=== PATIENT | male | born 1950 ===

== ENCOUNTER 2016-10-10 18:22 | Inpatient (IN) | payer MEDICAID, MEDICARE ==
[2016-10-10 18:26] VITALS: BMI 25.0
[2016-10-10] MEDS ORDERED: Morphine 2 mg/ml ISec IVP STA (19:18)
[2016-10-10] MEDS ORDERED: Sodium Chloride 0.9% 1,000 ML IV STA (19:18)
--- NOTE | 2016-10-10 19:20 | ED PDOC ---
Arrival/HPI - General Historian: Patient <Mark Natarajan - Last Filed: 10/10/16 22:43> <Gilberto Godoy - Last Filed: 10/10/16 23:03> - General Chief Complaint: Abdominal Pain Time Seen by Provider: 10/10/16 18:49 - History of Present Illness Narrative History of Present Illness (Text): 10/10/16 19:16 Mr. Mazariegos is a 66 year old male with past medical history of colon polyps, glaucoma, bladder cancer and past hx of gallstones who presents with a five hour history of abdominal pain. Pt states that today he was consuming a bowl of soup and 30 minutes after began experiencing diffuse abdominal pain. The patient indicates it feels dull and primarily located in the mid to right upper quadrant. Pt reports breathing or sudden movement causes him more discomfort. The patient reports 2 days prior to the onset of his presenting symptoms he experienced sudden onset diarrhea for which has resolved today. Pt denies nausea , vomiting, fever, chest pain, and shortness of breath. (Mark Natarajan) Past Medical History - Provider Review Nursing Documentation Reviewed: Yes - Past History Past History: No Previous - Infectious Disease Hx of Infectious Diseases: None - Tetanus Immunization Tetanus Immunization: Unknown - Past Medical History Past Medical History: No Previous - Cardiac Hx Cardiac Disorders: No - Pulmonary Hx Respiratory Disorders: No - Neurological Hx Neurological Disorder: No - HEENT Hx Glaucoma: Yes (BILAT.) - Renal Hx Renal Disorder: No - Endocrine/Metabolic Hx Endocrine Disorders: No - Hematological/Oncological Hx Cancer: Yes (BLADDER) - Integumentary Hx Dermatological Disorder: No - Musculoskeletal/Rheumatological Hx Musculoskeletal Disorders: Yes Hx Falls: No Hx Fractures: Yes (HX FRACTURE RIB AUGUST 2013) Hx Gout: Yes Other/Comment: HX FRACTURE RIB AUGUST 2013 - Gastrointestinal Hx Gastrointestinal Disorders: Yes (biliary stones, hemorrhoids) Hx Gall Bladder Disease: Yes (STONES) Other/Comment: RECTAL ABSCESS - Genitourinary/Gynecological Hx Genitourinary Disorders: Yes Hx Bladder Cancer: Yes Hx Hematuria: Yes - Psychiatric Hx Substance Use: No - Past Surgical History Past Surgical History: Non-Contributing - Surgical History Other/Comment: Cysto. RECTAL ABSCESS X 2 - Anesthesia Hx Anesthesia: Yes Hx Anesthesia Reactions: No Hx Malignant Hyperthermia: No - Suicidal Assessment Feels Threatened In Home Enviroment: No <Mark Natarajan - Last Filed: 10/10/16 22:43> Family/Social History - Physician Review Nursing Documentation Reviewed: Yes Family/Social History: No Known Family HX Smoking Status: Never Smoked Hx Alcohol Use: No Hx Substance Use: No Hx Substance Use Treatment: No <Mark Natarajan - Last Filed: 10/10/16 22:43> Allergies/Home Meds <BasimdeyaMark - Last Filed: 10/10/16 22:43> <Gilberto Godoy - Last Filed: 10/10/16 23:03> Allergies/Adverse Reactions: Allergies No Known Allergies Allergy (Verified 06/06/12 09:45) Home Medications: Home Meds Medication Instructions Recorded Confirmed Allopurinol 300 mg PO DAILY 04/22/15 10/10/16 Multivit-Mins/Iron/Folic/Lycop 1 tab PO DAILY 04/22/15 10/10/16 [Centrum Men's Tablet] Vpvzl-4-Typd Ethyl Esters [OMEGA 3] 1 tab PO DAILY 04/22/15 10/10/16 Latanoprost 0.005% Opht [Xalatan 1 drop BOTHEYES DAILY 10/10/16 10/10/16 Opht] Review of Systems - Physician Review All systems were reviewed & negative as marked: Yes - Review of Systems Constitutional: absent: Fevers Respiratory: absent: SOB Cardiovascular: absent: Chest Pain, Edema Gastrointestinal: Abdominal Pain, Nausea. absent: Vomiting Genitourinary Male: absent: Dysuria <Mark Natarajan - Last Filed: 10/10/16 22:43> Physical Exam Vital Signs Reviewed: Yes Temperature: Afebrile Blood Pressure: Normal Pulse: Regular Respiratory Rate: Normal Appearance: Positive for: Well-Appearing Pain Distress: None Mental Status: Positive for: Alert and Oriented X 3 - Systems Exam Head: Present: Atraumatic, Normocephalic Pupils: Present: PERRL Extroacular Muscles: Present: EOMI Conjunctiva: Present: Normal Mouth: Present: Moist Mucous Membranes Neck: Present: Normal Range of Motion Respiratory/Chest: Present: Clear to Auscultation, Good Air Exchange. No: Respiratory Distress, Accessory Muscle Use Cardiovascular: Present: Regular Rate and Rhythm, Normal S1, S2. No: Murmurs Abdomen: Present: Tenderness, Normal Bowel Sounds, Other (positive gong's sign ). No: Distention, Peritoneal Signs Upper Extremity: Present: Normal Inspection. No: Cyanosis, Edema Lower Extremity: Present: Normal Inspection. No: Edema <Mark Natarajan - Last Filed: 10/10/16 22:43> Medical Decision Making - Lab Interpretations I have reviewed the lab results: Yes - RAD Interpretation High Frequency Mill Operator: Radiologist - EKG Interpretation Interpreted by ED Physician: Yes Type: 12 lead EKG <Mark Natarajan - Last Filed: 10/10/16 22:43> <Gilberto Godoy - Last Filed: 10/10/16 23:03> ED Course and Treatment: 10/10/16 19:40 Impression: Pt is a 66 year old male with past medical history of polyps of his colon, bladder cancer and rectal abscess who complains of diffuse abdominal pain for the past 5 hours. Differential Diagnosis included but are not limited to: - cholecystitis - gastroenteritis Plan: - Labs: CBC, CMP, Lipase, cardiac iso - Meds: morphine, zofran, IVF, - Imaging: Right upper quadrant sound - Reassess and disposition Progress Notes: 10/10/16 19:40 10/10/16 21:41 U/S report results: Liver: Hepatic texture is mildly heterogeneous. There is hepatopedal flow in the main portal vein. There is a 2.4 x 3.1 cm low attenuation nodular lesion in the anterior liver. GB: Gallbladder is partially distended. There are shadowing stones with obscure posterior gallbladder. Gallbladder wall measures 2 mm in width. Common bile duct: Common bile duct measures 4 mm in diameter Pancreas: Pancreas is partially obscured by bowel gas. Kidneys: Kidneys are unremarkable Spleen: Spleen is unremarkable Aorta: Visualized portions of the aorta and inferior vena cava are unremarkable Impression: Fatty liver, possible nodular lesion in the anterior liver; limited visualization and evaluation of the pancreas; gallstones, Patient was not tender over the gallbladder 10/10/16 22:43 Spoke with admitting team and they are willing to accept patient for observation and GI consult tomorrow morning (Mark Natarajan) A 66 year old male with abdominal pain. In agreement with resident note, which includes further HPI details. Patient was seen and evaluated with resident, came up with plan and treatment together. RUQ tenderness. (Gilberto Godoy) - Lab Interpretations Lab Results: 10/10/16 20:00 10/10/16 20:00 Lab Results 10/10/16 21:00: Urine Color Yellow, Urine Appearance Clear, Urine pH 6.0, Ur Specific [place] 1.020, Urine Protein Negative, Urine Glucose (UA) Negative, Urine Ketones Negative, Urine Blood Negative, Urine Nitrate Negative, Urine Bilirubin Moderate H, Urine Urobilinogen 1.0 H, Ur Leukocyte Esterase Negative 10/10/16 20:00: Sodium 140, Potassium 4.4, Chloride 103, Carbon Dioxide 26, Anion Gap 15, BUN 8, Creatinine 1.0, Est GFR ( Amer) > 60, Est GFR (Non- Af Amer) > 60, Random Glucose 94, Calcium 8.8, Total Bilirubin 3.8 H, AST 147 H , ALT 99 H, Alkaline Phosphatase 115, Lactate Dehydrogenase 621, Total Creatine Kinase 95, Troponin I < 0.01, Total Protein 8.1, Albumin 4.1, Globulin 4.0, Albumin/Globulin Ratio 1.0 L, Lipase 130 10/10/16 20:00: WBC 9.4 D, RBC 5.66, Hgb 18.0 D, Hct 50.2, MCV 88.7, MCH 31.8 , MCHC 35.9, RDW 13.7, Plt Count 201, MPV 10.5, Gran % 73.4 H, Lymph % (Auto) 16.8 L, [place] % (Auto) 8.0 H, Eos % (Auto) 1.6, Baso % (Auto) 0.2, Gran # 6.87 H , Lymph # 1.6, [place] # 0.8 H, Eos # 0.2, Baso # 0.02 - RAD Interpretation Radiology Orders: 10/10/16 19:12 CHEST PORTABLE [RAD] Stat 10/10/16 19:18 ABDOMEN COMPLETE [US] Stat - EKG Interpretation EKG Interpretation (Text): 10/10/16 22:59 NSR, Rate [address] segment elevations or T wave inversions 10/10/16 22:59 (Mark Natarajan) - Medication Orders Current Medication Orders: Metronidazole (Flagyl) 500 mg in 100 mls @ 100 mls/hr IVPB Q8 NICO PRN Reason: Protocol Cefepime HCl (Maxipime 1gm) 1 gm in 100 mls @ 100 mls/hr IVPB Q12 NICO PRN Reason: Protocol Sodium Chloride (Sodium Chloride 0.9%) 1,000 mls @ 125 mls/hr IV .Q8H NICO Stop: 10/14/16 06:29 Last Admin: 10/10/16 23:01 Dose: 125 mls/hr Ondansetron HCl (Zofran Inj) 4 mg IVP Q4H PRN PRN Reason: Nausea/Vomiting Pantoprazole Sodium (Protonix Inj) 40 mg IVP DAILY NICO Discontinued Medications Sodium Chloride (Sodium Chloride 0.9%) 1,000 mls @ 999 mls/hr IV .Q1H1M STA Stop: 10/10/16 20:18 Last Admin: 10/10/16 20:02 Dose: 999 mls/hr Piperacillin Sod/Tazobactam Sod (Zosyn 4.5 Gm In Ns 100ml) 4.5 gm in 100 mls @ 200 mls/hr IVPB STAT STA PRN Reason: Protocol Stop: 10/10/16 22:36 Last Admin: 10/10/16 22:32 Dose: 200 mls/hr Morphine Sulfate (Morphine) 2 mg IVP STAT STA Stop: 10/10/16 19:19 Last Admin: 10/10/16 20:02 Dose: 2 mg Ondansetron HCl (Zofran Inj) 4 mg IVP STAT STA Stop: 10/10/16 19:19 Last Admin: 10/10/16 20:03 Dose: 4 mg - PA / SASH STICKER / Resident Statement / has reviewed & agrees with the documentation as recorded. / has examined the patient and agrees with the treatment plan. <Mark Natarajan - Last Filed: 10/10/16 22:43> - Scribe Statement The provider has reviewed the documentation as recorded by the Scribe <Gilberto Godoy - Last Filed: 10/10/16 23:03> - Scribe Statement Monica Jain Provider Scribe Attestation: All medical record entries made by the Scribe were at my direction and personally dictated by me. I have reviewed the chart and agree that the record accurately reflects my personal performance of the history, physical exam, medical decision making, and the department course for this patient. I have also personally directed, reviewed, and agree with the discharge instructions and disposition. (Gilberto Godoy) Disposition/Present on Arrival - Present on Arrival Any Indicators Present on Arrival: No History of DVT/PE: No History of Uncontrolled Diabetes: No Urinary Catheter: No History of Decub. Ulcer: No History Surgical Site Infection Following: None - Disposition Have Diagnosis and Disposition been Completed?: Yes Disposition Time: 22:15 Patient Plan: Observation <Mark Natarajan - Last Filed: 10/10/16 22:43> <Gilberto Godoy - Last Filed: 10/10/16 23:03> - Disposition Diagnosis: Abdominal pain Condition: STABLE
[2016-10-10 20:20] LABS: ALBUMIN 4.1 g/dL (3.0-4.8); ALT/SGPT 99 U/L (7-56); AST/SGOT 147 U/L (15-59); BLOOD UREA NITROGEN 8 mg/dL (7-21); CALCIUM 8.8 mg/dL (8.4-10.5); GFR AFRICAN-AMERICAN > 60; GFR NON-AFRICAN AMERICAN > 60; LIPASE 130 U/L (23-300)
[2016-10-10 20:34] LABS: TROPONIN I < 0.01 ng/mL
[2016-10-10 20:52] LABS: BASO # 0.02 K/mm3 (0.0-2.0); BASO % 0.2 % (0.0-3.0); EOS # 0.2 (0.0-0.7); EOS % 1.6 % (1.5-5.0); GRAN # 6.87 (1.4-6.5); GRAN % 73.4 % (50.0-68.0); LYMPH # 1.6 (1.2-3.4); LYMPH % 16.8 % (22.0-35.0); MEAN CELL VOLUME 88.7 fL (80.0-105.0); MEAN CORPUSCULAR HEMOGLOBIN 31.8 pg (25.0-35.0); MEAN CORPUSCULAR HGB CONC 35.9 g/dl (31.0-37.0); MEAN PLATELET VOLUME 10.5 fl (7.0-11.0); MONO # 0.8 (0.1-0.6); PLATELET COUNT 201 10^3/uL (120.0-450.0); RBC 5.66 10^6/uL (3.5-6.1); RED CELL DISTRIBUTION WIDTH 13.7 % (11.5-14.5); WHITE BLOOD COUNT 9.4 10^3/ul (4.5-11.0)
[2016-10-10 21:16] LABS: URINE APPEARANCE CLEAR (CLEAR); URINE BILIRUBIN MODERATE (NEGATIVE); URINE BLOOD NEGATIVE (NEGATIVE); URINE COLOR YELLOW (YELLOW); URINE GLUCOSE (UA) NEGATIVE (NEGATIVE); URINE LEUKOCYTE ESTERASE NEGATIVE Leu/uL (NEGATIVE); URINE NITRATE NEGATIVE (NEGATIVE); URINE PROTEIN NEGATIVE mg/dL (<30 mg/dL)
--- NOTE | 2016-10-10 21:23 | US ---
EXAM: US Abdomen Complete CLINICAL HISTORY: 66 years old, male; Pain; Abdominal pain; Additional info: Abdominal pain - positive gong sign TECHNIQUE: Real-time ultrasound of the abdomen (complete) with image documentation. EXAM DATE/TIME: 10/10/2016 7:18 PM COMPARISON: There are no prior studies for comparison. FINDINGS: Liver: Hepatic texture is mildly heterogeneous. There is hepatopedal flow in the main portal vein. There is a 2.4 x 3.1 cm low attenuation nodular lesion in the anterior liver. Gallbladder: Gallbladder is partially distended. There are shadowing stones which obscure posterior gallbladder. Gallbladder wall measures 2 mm in width. Common bile duct: Common bile duct measures 4 mm in diameter. Pancreas: Pancreas is partially obscured by bowel gas. Kidneys: Kidneys are unremarkable. Spleen: Spleen is unremarkable. Aorta: Visualized portions of the aorta and inferior vena cava are unremarkable. Inferior vena cava: See above. IMPRESSION: Fatty liver, possible nodular lesion in the anterior liver; limited visualization and evaluation of the pancreas; gallstones Patient was not tender over the gallbladder
[2016-10-10] MEDS ORDERED: Piperacill/Tazo 4.5gm in NS 4.5 GM/100 ML BAG IVPB STA (22:07)
--- NOTE | 2016-10-10 22:29 | CP.PCM.HP ---
History of Present Illness - History of Present Illness History of Present Illness: CC: Abdominal Pain Patient is a 66 year old male with a PMHx of colon polyps, glaucoma, rectal abscess, bladder cancer, gallstones, gout, and rib fracture who presents to the ED for evaluation of abdominal pain which began earlier this today after eating seafood. States that the pain is described as being a diffuse pressure. Denies associated vomitting or diarrhea. Admits to nausea which has resolved since onset. Sudden movement exacerbates the discomfort. Denies fever, chills, chest pain, SOB, constipation, and urinary symptoms. PMHx: colon polyps, glaucoma, rectal abscess, bladder cancer, gallstones, rib fracture PSHx: Cystoscopy with bladder tumor removal, rectal abscess X 2 Allergies: NKDA Social Hx: ETOH socially, denies tobacco use, denies illicit drug use Family Hx: father- prostate cancer Present on Admission - Present on Admission Any Indicators Present on Admission: No Review of Systems - Review of Systems Review of Systems: 12 point review of systems negative except as indicated in the HPI Past Patient History - Infectious Disease Hx of Infectious Diseases: None - Tetanus Immunizations Tetanus Immunization: Unknown - Past Medical History & Family History Past Medical History?: Yes - Past Social History Smoking Status: Never Smoked - CARDIAC Hx Cardiac Disorders: No - PULMONARY Hx Respiratory Disorders: No - NEUROLOGICAL Hx Neurological Disorder: No - HEENT Hx Glaucoma: Yes (BILAT.) - RENAL Hx Chronic Kidney Disease: No - ENDOCRINE/METABOLIC Hx Endocrine Disorders: No - HEMATOLOGICAL/ONCOLOGICAL Hx Cancer: Yes (BLADDER) - INTEGUMENTARY Hx Dermatological Problems: No - MUSCULOSKELETAL/RHEUMATOLOGICAL Hx Musculoskeletal Disorders: Yes Hx Falls: No Hx Fractures: Yes (HX FRACTURE RIB AUGUST 2013) Hx Gout: Yes Other/Comment: HX FRACTURE RIB AUGUST 2013 - GASTROINTESTINAL Hx Gastrointestinal Disorders: Yes (biliary stones, hemorrhoids) Hx Gall Bladder Disease: Yes (STONES) Other/Comment: RECTAL ABSCESS - GENITOURINARY/GYNECOLOGICAL Hx Genitourinary Disorders: Yes Hx Bladder Cancer: Yes Hx Hematuria: Yes - PSYCHIATRIC Hx Substance Use: No - SURGICAL HISTORY Other/Comment: Cysto. RECTAL ABSCESS X 2 - ANESTHESIA Hx Anesthesia: Yes Hx Anesthesia Reactions: No Hx Malignant Hyperthermia: No Meds Allergies/Adverse Reactions: Allergies Allergy/AdvReac Type Severity Reaction Status Date / Time No Known Allergies Allergy Verified 06/06/12 09:45 Physical Exam - Constitutional Appears: Well, Non-toxic - Head Exam Head Exam: ATRAUMATIC, NORMAL INSPECTION - Eye Exam Eye Exam: EOMI, Normal appearance, PERRL - ENT Exam ENT Exam: Mucous Membranes Moist - Neck Exam Neck exam: Positive for: Full Rom. Negative for: Tenderness, Thyromegaly - Respiratory Exam Respiratory Exam: Clear to Auscultation Bilateral, NORMAL BREATHING PATTERN. absent: Rales, Rhonchi, Wheezes - Cardiovascular Exam Cardiovascular Exam: REGULAR RHYTHM, +S1, +S2 - GI/Abdominal Exam GI & Abdominal Exam: Distended, Normal Bowel Sounds. absent: Guarding, Rebound , Rigid - Back Exam Back exam: absent: CVA tenderness (L), CVA tenderness (R) - Neurological Exam Neurological exam: Alert, CN II-XII Intact, Oriented x3 - Psychiatric Exam Psychiatric exam: Normal Affect, Normal Mood - Skin Skin Exam: Intact, Normal Color, Warm Results - Vital Signs Recent Vital Signs: Last Vital Signs Temp 97.7 F 10/10/16 18:31 Pulse 63 10/10/16 18:31 Resp 18 10/10/16 18:31 BP 129/79 10/10/16 18:31 Pulse Ox 98 10/10/16 18:31 - Labs Result Diagrams: 10/10/16 20:00 10/10/16 20:00 Assessment & Plan - Assessment and Plan (Free Text) Assessment: Pt is a 66 year old male with past medical history of polyps of his colon, bladder cancer and rectal abscess who is being admitted to the hospital for evaluation and treatment of diffuse abdominal pain. 1. Abdominal Pain - cholecystitis vs gastroenteritis - abdominal US reviewed, details- Fatty liver, possible nodular lesion in the anterior liver; limited visualization and evaluation of the pancreas; Gallbladder is partially distended. There are shadowing stones which obscure posterior gallbladder. Gallbladder wall measures 2 mm in width. - NPO - IVF NS @ 125 - CT chest, abdomen, pelvis with IV contrast - HIDA scan - GI consult - Surgery consult - metronidazole - cefepime - zofran 2. Transaminitis, Elevated T. Bili - monitor closely repeat CMP in AM - Hepatitis panel - HIV screening 3. Hyperlipidemia - hold home omega 3 now - restart as per day team 3. Gout - hold home allopurinol - restart as per day team 4. PPX - protonix - SCD Patient discussed with attending, Dr. Comer.
[2016-10-10] MEDS: Sodium Chloride 0.9% 1,000 ML IV SCH (23:01)
[2016-10-10] MEDS: metroNIDAZOLE IV 500 mg/100 ml 500 MG/100 ML BAG IVPB SCH (23:06)
[2016-10-10] MEDS ORDERED: HYDROmorphone 1 mg/ml ISec IVP PRN (23:24)
--- NOTE | 2016-10-10 23:37 | CP.PCM.CON ---
<Sarah Tovar - Last Filed: 10/10/16 23:31> History of Present Illness - History of Present Illness History of Present Illness: General Surgery 66 y/o M w/PMHx of bladder Ca, colon polyps, gallstones, glaucoma presents to the ED c/o abd pain. Pt states pain began 1hr after eating bowl of soup. Pain diffuse assoc w/ bloating and nausea. pt denies vomiting, D/C, F/V. Pt states he attempted to make himself vomit after pain and bloating began to relive symptoms; however, pt was unable to vomiting. Nothing made pain better or worse. Pt denies having had this before. PMHx: see above, rectal abscesses, hemorrhoids Meds: reviewed in chart NKDA PSHx: denies abd surgery PSH: denies T/EtOH/ Drug use. FHx: noncontributory Review of Systems - Review of Systems All systems: reviewed and no additional remarkable complaints except (see HPI) Past Patient History - Infectious Disease Hx of Infectious Diseases: None - Tetanus Immunizations Tetanus Immunization: Unknown - Past Medical History & Family History Past Medical History?: Yes - Past Social History Smoking Status: Never Smoked - CARDIAC Hx Cardiac Disorders: No - PULMONARY Hx Respiratory Disorders: No - NEUROLOGICAL Hx Neurological Disorder: No - HEENT Hx Glaucoma: Yes (BILAT.) - RENAL Hx Chronic Kidney Disease: No - ENDOCRINE/METABOLIC Hx Endocrine Disorders: No - HEMATOLOGICAL/ONCOLOGICAL Hx Cancer: Yes (BLADDER) - INTEGUMENTARY Hx Dermatological Problems: No - MUSCULOSKELETAL/RHEUMATOLOGICAL Hx Musculoskeletal Disorders: Yes Hx Falls: No Hx Fractures: Yes (HX FRACTURE RIB AUGUST 2013) Hx Gout: Yes Other/Comment: HX FRACTURE RIB AUGUST 2013 - GASTROINTESTINAL Hx Gastrointestinal Disorders: Yes (biliary stones, hemorrhoids) Hx Gall Bladder Disease: Yes (STONES) Other/Comment: RECTAL ABSCESS - GENITOURINARY/GYNECOLOGICAL Hx Genitourinary Disorders: Yes Hx Bladder Cancer: Yes Hx Hematuria: Yes - PSYCHIATRIC Hx Substance Use: No - SURGICAL HISTORY Other/Comment: Cysto. RECTAL ABSCESS X 2 - ANESTHESIA Hx Anesthesia: Yes Hx Anesthesia Reactions: No Hx Malignant Hyperthermia: No Meds Allergies/Adverse Reactions: Allergies Allergy/AdvReac Type Severity Reaction Status Date / Time No Known Allergies Allergy Verified 06/06/12 09:45 - Medications Medications: Current Medications Hydromorphone HCl (Dilaudid) 1 mg IVP Q4H PRN PRN Reason: Pain, moderate (4-7) Metronidazole (Flagyl) 500 mg in 100 mls @ 100 mls/hr IVPB Q8 NICO PRN Reason: Protocol Last Admin: 10/10/16 23:06 Dose: 100 mls/hr Cefepime HCl (Maxipime 1gm) 1 gm in 100 mls @ 100 mls/hr IVPB Q12 NICO PRN Reason: Protocol Sodium Chloride (Sodium Chloride 0.9%) 1,000 mls @ 125 mls/hr IV .Q8H [facility] Stop: 10/14/16 06:29 Last Admin: 10/10/16 23:01 Dose: 125 mls/hr Ondansetron HCl (Zofran Inj) 4 mg IVP Q4H PRN PRN Reason: Nausea/Vomiting Pantoprazole Sodium (Protonix Inj) 40 mg IVP DAILY [facility] Physical Exam - Constitutional Appears: Non-toxic, No Acute Distress - Head Exam Head Exam: NORMAL INSPECTION - Eye Exam Eye Exam: Normal appearance Pupil Exam: NORMAL ACCOMODATION - ENT Exam ENT Exam: Mucous Membranes Moist - Respiratory Exam Respiratory Exam: NORMAL BREATHING PATTERN. absent: Accessory Muscle Use, Respiratory Distress - Cardiovascular Exam Cardiovascular Exam: absent: Bradycardia, Tachycardia - GI/Abdominal Exam GI & Abdominal Exam: Soft. absent: Diminished Bowel Sounds, Distended, Hypoactive Bowel Sounds, Tenderness - Extremities Exam Extremities exam: Positive for: normal inspection - Back Exam Back exam: NORMAL INSPECTION - Neurological Exam Neurological exam: Alert, Oriented x3 - Psychiatric Exam Psychiatric exam: Normal Affect, Normal Mood - Skin Skin Exam: Dry, Intact, Normal Color, Warm Results - Vital Signs Recent Vital Signs: Last Vital Signs Temp 97.7 F 10/10/16 18:31 Pulse 60 10/10/16 23:09 Resp 16 10/10/16 23:09 BP 127/78 10/10/16 23:09 Pulse Ox 95 10/10/16 23:09 - Labs Result Diagrams: 10/10/16 20:00 10/10/16 20:00 - Imaging and Cardiology US - abdomen Status: Report reviewed by me Assessment & Plan - Assessment and Plan (Free Text) Assessment: 66 y/o M w/ abd pain, hyperbilirubinemia - f/u HIDA - f/u CT Chest/Abd/Pelvis - trend LFTs - monitor electrolytes - NPO, IVF, pain management, anti-emetic - further recs per Dr. Zelaya Will discussed w/ Dr. Garcia Tovar DO PGY2 <Zay Zelaya - Last Filed: 10/11/16 10:14> Meds - Medications Medications: Current Medications Hydromorphone HCl (Dilaudid) 1 mg IVP Q4H PRN PRN Reason: Pain, moderate (4-7) Metronidazole (Flagyl) 500 mg in 100 mls @ 100 mls/hr IVPB Q8 NICO PRN Reason: Protocol Last Admin: 10/11/16 05:41 Dose: 100 mls/hr Cefepime HCl (Maxipime 1gm) 1 gm in 100 mls @ 100 mls/hr IVPB Q12 NICO PRN Reason: Protocol Sodium Chloride (Sodium Chloride 0.9%) 1,000 mls @ 125 mls/hr IV .Q8H NICO Stop: 10/14/16 06:29 Last Admin: 10/11/16 05:41 Dose: 125 mls/hr Ondansetron HCl (Zofran Inj) 4 mg IVP Q4H PRN PRN Reason: Nausea/Vomiting Pantoprazole Sodium (Protonix Inj) 40 mg IVP DAILY [facility] Results - Vital Signs Recent Vital Signs: Last Vital Signs Temp 98.1 F 10/11/16 07:30 Pulse 53 L 10/11/16 07:30 Resp 18 10/11/16 07:30 BP 116/61 10/11/16 07:30 Pulse Ox 98 10/11/16 07:30 - Labs Result Diagrams: 10/11/16 07:40 10/11/16 07:40 Labs: Laboratory Results - last 24 hr 10/10/16 10/11/16 10/11/16 23:20 07:40 07:40 WBC 5.8 D RBC 4.97 Hgb 15.4 Hct 44.2 MCV 88.9 MCH 31.0 MCHC 34.8 RDW 13.8 Plt Count 173 MPV 9.9 Gran % 49.6 L Lymph % (Auto) 36.0 H [place] % (Auto) 9.8 H Eos % (Auto) 3.9 Baso % (Auto) 0.7 Gran # 2.90 Lymph # 2.1 [place] # 0.6 Eos # 0.2 Baso # 0.04 PT 11.3 INR 1.05 APTT 27.5 Sodium 141 Potassium 4.2 Chloride 107 Carbon Dioxide 26 Anion Gap 12 BUN 7 Creatinine 1.2 Est GFR ( Amer) > 60 Est GFR (Non-Af Amer) > 60 Random Glucose 86 Calcium 8.6 Magnesium 1.9 Total Bilirubin 2.8 H Direct Bilirubin 1.8 H AST 94 H ALT 81 H Alkaline Phosphatase 85 Total Protein 6.5 Albumin 3.2 Globulin 3.3 Albumin/Globulin Ratio 1.0 L Assessment & Plan - Assessment and Plan (Free Text) Plan: DX:Cholelithiasis-?Liver Mass(HxBladder CA) Completely asymptomatic now/+ Viz HIDA Await CT SCAN/OK Liquids/No surgery now This consult done under my direct supervision Rosie Zelaya MD FACS
[2016-10-10 23:57] LABS: INR 1.05 (0.93-1.08); PARTIAL THROMBOPLASTIN TIME 27.5 Seconds (23.7-30.8); PROTHROMBIN TIME 11.3 Seconds (9.9-11.8)
[2016-10-11] MEDS: metroNIDAZOLE IV 500 mg/100 ml 500 MG/100 ML BAG IVPB SCH ×3 (05:41→23:03)
[2016-10-11] MEDS: Sodium Chloride 0.9% 1,000 ML IV SCH ×2 (05:41→23:06)
--- NOTE | 2016-10-11 07:47 | RAD ---
HISTORY: abdominal pain COMPARISON: 11/10/2014 FINDINGS: LUNGS: The lungs are well inflated and clear. PLEURA: No significant pleural effusion identified, no pneumothorax apparent. CARDIOVASCULAR: Normal. OSSEOUS STRUCTURES: No significant abnormalities. VISUALIZED UPPER ABDOMEN: Normal. OTHER FINDINGS: None. IMPRESSION: No active pulmonary disease.
[2016-10-11 08:01] LABS: BASO # 0.04 K/mm3 (0.0-2.0); BASO % 0.7 % (0.0-3.0); EOS # 0.2 (0.0-0.7); EOS % 3.9 % (1.5-5.0); GRAN % 49.6 % (50.0-68.0); HEMOGLOBIN 15.4 gm/dL (14.0-18.0); LYMPH # 2.1 (1.2-3.4); MEAN CELL VOLUME 88.9 fL (80.0-105.0); MEAN CORPUSCULAR HGB CONC 34.8 g/dl (31.0-37.0); MEAN PLATELET VOLUME 9.9 fl (7.0-11.0); MONO # 0.6 (0.1-0.6); MONO % 9.8 % (1.0-6.0); PLATELET COUNT 173 10^3/uL (120.0-450.0); RBC 4.97 10^6/uL (3.5-6.1); RED CELL DISTRIBUTION WIDTH 13.8 % (11.5-14.5); WHITE BLOOD COUNT 5.8 10^3/ul (4.5-11.0)
[2016-10-11 08:11] LABS: ALBUMIN 3.2 g/dL (3.0-4.8); ALT/SGPT 81 U/L (7-56); AST/SGOT 94 U/L (15-59); BILIRUBIN,DIRECT 1.8 mg/dL (0.0-0.4); BLOOD UREA NITROGEN 7 mg/dL (7-21); CALCIUM 8.6 mg/dL (8.4-10.5); GFR AFRICAN-AMERICAN > 60; GFR NON-AFRICAN AMERICAN > 60; MAGNESIUM 1.9 mg/dL (1.7-2.2)
--- NOTE | 2016-10-11 08:38 | CP.PCM.PN ---
Subjective - Date & Time of Evaluation Date of Evaluation: 10/11/16 Time of Evaluation: 06:45 - Subjective Subjective: General Surgery- Dr. Zelaya Pt S8E at bedside this AM. No acute events overnight. Pt states no current nausea or vomiting. Currently NPO. Denies chest pain or shortness of breath. Objective - Vital Signs/Intake and Output Vital Signs (last 24 hours): Temp Pulse Resp BP Pulse Ox 98 F 56 L 18 127/78 95 10/11/16 00:22 10/11/16 00:22 10/11/16 00:22 10/11/16 00:22 10/10/16 23:09 - Medications Medications: Current Medications Hydromorphone HCl (Dilaudid) 1 mg IVP Q4H PRN PRN Reason: Pain, moderate (4-7) Metronidazole (Flagyl) 500 mg in 100 mls @ 100 mls/hr IVPB Q8 NICO PRN Reason: Protocol Last Admin: 10/11/16 05:41 Dose: 100 mls/hr Cefepime HCl (Maxipime 1gm) 1 gm in 100 mls @ 100 mls/hr IVPB Q12 NICO PRN Reason: Protocol Sodium Chloride (Sodium Chloride 0.9%) 1,000 mls @ 125 mls/hr IV .Q8H NICO Stop: 10/14/16 06:29 Last Admin: 10/11/16 05:41 Dose: 125 mls/hr Ondansetron HCl (Zofran Inj) 4 mg IVP Q4H PRN PRN Reason: Nausea/Vomiting Pantoprazole Sodium (Protonix Inj) 40 mg IVP DAILY NICO - Labs Labs: 10/11/16 07:40 10/11/16 07:40 PT 11.3 Seconds (9.9-11.8) 10/10/16 23:20 INR 1.05 (0.93-1.08) 10/10/16 23:20 APTT 27.5 Seconds (23.7-30.8) 10/10/16 23:20 - Constitutional Appears: No Acute Distress - Head Exam Head Exam: NORMAL INSPECTION - Eye Exam Eye Exam: EOMI - ENT Exam ENT Exam: Mucous Membranes Moist - Respiratory Exam Respiratory Exam: Clear to Ausculation Bilateral, NORMAL BREATHING PATTERN. absent: Accessory Muscle Use, Rales, Wheezes, Respiratory Distress - Cardiovascular Exam Cardiovascular Exam: REGULAR RHYTHM, RRR, +S1, +S2 - GI/Abdominal Exam GI & Abdominal Exam: Soft, Tenderness, Normal Bowel Sounds Additional comments: RUQ tenderness - Extremities Exam Extremities Exam: Normal Inspection - Neurological Exam Neurological Exam: Awake, Oriented x3 Assessment and Plan - Assessment and Plan (Free Text) Assessment: 66M w/ abdominal pain, and hyperbilirubinemia Plan: - T.Bili trending downward - F/u Hida - GI recs - further Recs per Dr. Garcia Shaffer PGY1
[2016-10-11] MEDS ORDERED: Iohexol 350 MG/100 ML VIAL ONE (09:52)
--- NOTE | 2016-10-11 10:11 | CP.PCM.PCO ---
Physician Communication Note - Physician Communication Note Physician Communication Note: Improved! Asymptomatic/+ Viz HIDA/Await CT(?Mets- Liver) NO Surgery now
[2016-10-11] MEDS: Cefepime 1gm in NS 100ml 1 GM/100 ML BAG IVPB SCH ×2 (10:47→21:06)
--- NOTE | 2016-10-11 11:06 | CT ---
PROCEDURE: CT Chest, Abdomen and Pelvis with intravenous contrast HISTORY: HX BLADDER CA/??CHOLECYSTITIS COMPARISON: None. TECHNIQUE: IV dose administered: 100 cc of Omni 350 Radiation dose: Total exam DLP = mGy-cm. This CT exam was performed using one or more of the following dose reduction techniques: Automated exposure control, adjustment of the mA and/or kV according to patient size, and/or use of iterative reconstruction technique. FINDINGS: CT CHEST WITH CONTRAST: LUNGS: Clear. No nodule, mass or consolidation. MEDIASTINUM: Unremarkable. Normal caliber aorta and pulmonary arterial trunk. No aortic dissection. Normal size heart. LYMPH NODES: Unremarkable. PLEURA: Unremarkable. No pneumothorax. No pleural fluid. BONES: Unremarkable. OTHER FINDINGS: None. CT ABDOMEN AND PELVIS: LIVER: Unremarkable. No gross lesion or ductal dilatation. GALLBLADDER AND BILE DUCTS: Multiple large gallstones. No acute inflammation. PANCREAS: Unremarkable. No gross lesion or ductal dilatation. SPLEEN: Unremarkable. ADRENALS: Unremarkable. No mass. KIDNEYS AND URETERS: Unremarkable. No hydronephrosis. No solid mass. VASCULATURE: Unremarkable. No aortic aneurysm. BOWEL: Unremarkable. No obstruction. No gross mural thickening. APPENDIX: Normal appendix. PERITONEUM: Unremarkable. No free fluid. No free air. LYMPH NODES: Unremarkable. No enlarged lymph nodes. BLADDER: Unremarkable. REPRODUCTIVE: Unremarkable. BONES: No acute fracture. OTHER FINDINGS: None. IMPRESSION: Multiple large gallstones. No evidence of acute cholecystitis. The study is otherwise unremarkable
[2016-10-11 12:11] LABS: HEPATITIS B SURFACE AG NEGATIVE (NEGATIVE)
[2016-10-11 12:16] LABS: HEPATITIS A IGM NEGATIVE (NEGATIVE); HEPATITIS B CORE AB NEGATIVE (NEGATIVE)
[2016-10-11 12:28] LABS: HEPATITIS C ANTIBODY NEGATIVE (NEGATIVE)
--- NOTE | 2016-10-11 14:18 | PN ---
DATE OF PROGRESS NOTE: 10/11/2016 SUBJECTIVE: The patient is seen in the HIDA scan. The patient is lying in the bed. The patient states that his abdominal pain has resolved to significant degree. PHYSICAL EXAMINATION: VITAL SIGNS: T-max 98, heart rate is 60 to 62, blood pressure 127/78 to 140/72 to 116/61; respirations 18 and O2 sat is 95% to 98%. HEAD: Normocephalic and atraumatic. HEENT: Shows pink conjunctivae, anicteric sclerae, dry oral mucosa. NECK: No neck rigidity. CHEST: Symmetrical. LUNGS: Shows no rales, crackles or wheezing. CARDIOVASCULAR: S1 and S2. Regular rhythm. ABDOMEN: Soft. Positive bowel sounds. Significantly resolved epigastric right upper quadrant and periumbilical tenderness. No rebound tenderness. No costovertebral angle tenderness. GENITALIA: Male. RECTAL Deferred. EXTREMITIES: Show no pitting edema. No calf tenderness. No Homans signs. NEUROLOGIC: The patient is alert, awake, oriented x3. Cranial nerve II through XII intact. Gait examination is not tested. VASCULAR: Palpable pulses. MUSCULOSKELETAL: Shows a body mass index of 25. Gait examination is not tested. PSYCHIATRIC: Not applicable. DIAGNOSTIC DATA: From 10/11/2016, WBC 5.8, hemoglobin and hematocrit 13.4 and 44.2, and platelets 173. PT/PTT is normal. Sodium 141, potassium 4.2, chloride 107, CO2 of 26, anion gap 12, BUN 7, creatinine 1.2, GFR greater than 60, glucose 86, calcium 8.6, magnesium 1.9, total bilirubin 2.8 down from 3.8; direct bilirubin 1.8; AST down to 94 from 147; ALT down to 81 from 99. Rest of the LFTs are normal. Urinalysis is noted. The patient's CT abdomen, pelvis and HIDA scan done; results pending. Ultrasound, chest x-ray reviewed. EKG reviewed. IMPRESSION AND PLAN: 1. Upper abdominal pain, etiology unclear. 2. Questionable symptomatic cholelithiasis. 3. History of colonic polyp. 4. History of bladder carcinoma. 5. History of cholelithiasis. 6. History of upper abdominal pain, resolving to resolved. 7. Transient erythrocytosis. 8. Bilirubinuria. 9. Granulocytosis. 10. Hyperbilirubinemia and transaminitis. 11. Questionable obstructive jaundice, etiology undetermined. 12. Hepatic nodular lesion. 13. Partially distended gallbladder with cholelithiasis. 14. Hepatic steatosis with possible nodular lesion in the anterior liver. 15. History of rectal abscess. 16. History of glaucoma. 17. History of colonic polyp. 18. History of hyperuricemia. 19. History of rib fracture. 20. History of multiple cystoscopy for bladder cancer. 21. History of right middle lobe traction bronchiectasis. 22. History of prostatomegaly. 23. History of pancolitis and ileitis. 24. 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 25. History of bladder cancer. 26. History of hematuria. 27. History of papillary transitional bladder cell carcinoma, low grade, noninvasive. 28. History of noninvasive, high grade papillary urothelial bladder carcinoma. 29. History of chronic cystitis with urothelial hyperplasia. 30. History of papillary transitional cell carcinoma. 31. History of Clostridium difficile colitis. 32. History of perirectal abscess. 33. History of pseudomembranous colitis. PAST MEDICAL HISTORY: Significant for cystoscopy, biopsy and bladder fulguration. History of multiple cystoscopy and resection of bladder tumor and fulguration; history of hematuria; history of cystoscopy, bladder biopsy and fulguration. PLAN: At this time, the patient's hepatitis panel pending; serial labs are ordered; HIV-PSA is ordered. Surgical and GI evaluation pending. CURRENT MEDICATIONS: Dilaudid 1 mg IV q.4 hours p.r.n., Flagyl 500 IV q.8 hours; cefepime 1 g IV q.12 hours; Protonix 40 IV daily; IV fluid 0.9 at 125 mL an hour; Zofran 4 mg IV q.4 hours p.r.n. The patient's CAT scan of the abdomen and pelvis and HIDA scan is pending. The patient has been ordered out of bed, SCDs, LUCITA stockings. At present, the patient's further management will be dependent upon the patient's clinical condition, hemodynamic status and as per the patient response to therapeutic intervention and as per recommendation by Surgery and Gastroenterology. Dictated and electronically signed, not read. Daniel Comer MD
--- NOTE | 2016-10-11 15:44 | CP.PCM.PN ---
Subjective - Date & Time of Evaluation Date of Evaluation: 10/11/16 Time of Evaluation: 07:30 - Subjective Subjective: Patient is a 66 year old male past medical history bladder cancer, rectal abscess, colon polyps seen at bedside today in no acute distress and no complaints. Patient states that the abdominal pain that initially caused him to be admitted had resolved. Patient denies chest pain, abdominal pain, shortness of breath, headache, n/v/d. Objective - Vital Signs/Intake and Output Vital Signs (last 24 hours): Temp Pulse Resp BP Pulse Ox 98.1 F 53 L 18 116/61 98 10/11/16 07:30 10/11/16 07:30 10/11/16 07:30 10/11/16 07:30 10/11/16 07:30 - Medications Medications: Current Medications Hydromorphone HCl (Dilaudid) 1 mg IVP Q4H PRN PRN Reason: Pain, moderate (4-7) Metronidazole (Flagyl) 500 mg in 100 mls @ 100 mls/hr IVPB Q8 NICO PRN Reason: Protocol Last Admin: 10/11/16 05:41 Dose: 100 mls/hr Cefepime HCl (Maxipime 1gm) 1 gm in 100 mls @ 100 mls/hr IVPB Q12 NICO PRN Reason: Protocol Last Admin: 10/11/16 10:47 Dose: 100 mls/hr Sodium Chloride (Sodium Chloride 0.9%) 1,000 mls @ 125 mls/hr IV .Q8H [facility] Stop: 10/14/16 06:29 Last Admin: 10/11/16 05:41 Dose: 125 mls/hr Ondansetron HCl (Zofran Inj) 4 mg IVP Q4H PRN PRN Reason: Nausea/Vomiting Pantoprazole Sodium (Protonix Inj) 40 mg IVP DAILY [facility] Last Admin: 10/11/16 10:36 Dose: 40 mg - Labs Labs: PT 11.3 Seconds (9.9-11.8) 10/10/16 23:20 INR 1.05 (0.93-1.08) 10/10/16 23:20 APTT 27.5 Seconds (23.7-30.8) 10/10/16 23:20 - Constitutional Appears: Well, Non-toxic - Head Exam Head Exam: ATRAUMATIC, NORMAL INSPECTION, NORMOCEPHALIC - Eye Exam Eye Exam: EOMI, Normal appearance - ENT Exam ENT Exam: Mucous Membranes Moist, Normal Exam - Respiratory Exam Respiratory Exam: Clear to Ausculation Bilateral, NORMAL BREATHING PATTERN. absent: Accessory Muscle Use - Cardiovascular Exam Cardiovascular Exam: REGULAR RHYTHM, +S1, +S2. absent: Clicks, Gallop, RRR - GI/Abdominal Exam GI & Abdominal Exam: Soft, Diminished Bowel Sounds. absent: Tenderness - Neurological Exam Neurological Exam: Alert, Awake, Oriented x3 - Psychiatric Exam Psychiatric exam: Normal Affect, Normal Mood - Skin Skin Exam: Intact, Normal Color. absent: Dry Assessment and Plan - Assessment and Plan (Free Text) Assessment: Patient is a 66 year old male past medical history bladder cancer, rectal abscess, colon polyps Plan: 1. Cholelithiasis - Flagyl 500 mg IVP q8h - Cefepime 1 gm IVP q12 2. Transaminitis - CT abdomen/pelvis- reveals multiple large gallstones, showing no evidence of acute cholecystitis - Abdomen U/S shows fatty liver, possible nodular lesion in the anterior liver, gallstones, limited view of pancreas - Hepatitis panel; results pending - HIV results pending - PSA ordered, results pending -DVT/GI prophylaxis- Knee SCDs, Protonix 40 mg IVP daily
--- NOTE | 2016-10-11 16:48 | CARD ---
APPROVED REPORT EKG Measurement Heart [id number] DC 130P69 [id number] <Conclusion> Sinus rhythm with premature supraventricular complexes Otherwise normal ECG
--- NOTE | 2016-10-11 23:02 | CON ---
DATE: 10/11/2016 Dictation on behalf of Dr. Shekhar Castillo who is currently on vacation till next week. HISTORY OF PRESENT ILLNESS: The patient is a 66-year-old male with past medical history of colon polyps, glaucoma, bladder cancer, and gall stones who presents with the 5-hour history of abdominal pain which started yesterday. He indicated that he was eating sea food and within about 30-45 minutes afterwards started experiencing diffuse abdominal pain. Pain was diffuse, it was right upper quadrant. It did not radiate to back. It was not associated with change in urine color, no associated with any jaundice. No pruritus is noted as well. He denied hematemesis, rectal bleeding. Pain was continuous right at the ER, subsequently he was started with fluids, analgesics, etc., pain dissipated. At the bedside this morning, patient is asymptomatic, wants to advance diet. PHYSICAL EXAMINATION: VITAL SIGNS: I reviewed this patient's vital signs. HEENT: Noncontributory except for dry mouth. LUNGS: Clear to auscultation. HEART: Regular rhythm. ABDOMEN: Soft. No tenderness elicited in any quadrant. LABORATORY DATA: I reviewed the consultations, was expecting the x-rays. Dr. Zelaya reported upon evaluation of the patient this morning, no surgery. I reviewed the patient's HIDA scan which was done this morning. The gallbladder was visualized. No ductal dilatation noted. His chest, abdomen, and pelvic CT was reviewed as well. The CT is significant for unremarkable waver. Multiple white gallstones. No pericholecystic fluid. Pancrease is unremarkable. Remainder noncontributory. Note that he has no enlarged lymph nodes. Over assessment of radiologist and also at the review of the x-ray films, multiple white gallstones with no evidence of acute cholecystitis noted on the CT scan. Review of abdominal ultrasound reveals some more findings for the biliary tract that is normal common bile duct with no pericholecystic fluid and normal wall gallbladder. There were multiple gall stones. I reviewed this patient's laboratory data. Note that on initial evaluation, the patient's white count was 9.4, subsequently this morning 5.8, some delusional effect with drop in H&H from 18 and 52 to 15 and 44. INR within normal limits. Now that the patient's chemistry indicated on initial evaluation, patient's bilirubin was 3.8 subsequently decreased at 8:00 this morning to 2.8 with a direct bilirubin of 1.8. That his transaminases on evaluation in the ER, ratio of AST and ALT 147:99. Currently as of this point in time, AST and ALT 94/81. Urine showed moderate urine bilirubin. ASSESSMENT: This is a 66-year-old male with history of with colon polyps also urinary bladder cancer as well. Apparently, his last visit for urinary bladder cancer was several months ago. Note that he has not had a similar episode, similar to this, however, he was aware of gallstones in the past. At the current time point, patient is asymptomatic. He is evaluated by surgery, x-ray evaluation reports dictated above. At this point in time, it is probable that the scenario is consistent with a gallstone passage with acute onset of abdominal pain and subsequent decrease in transaminases stone passed. Again patient is currently asymptomatic now. Request an upgrade in his diet. I reviewed the patient data with Dr. Comer and subsequently increased his diet up to small volume clear liquids this morning. He would be evaluated by Dr. Comer later on this morning. Taras Moore DO
[2016-10-12] MEDS: metroNIDAZOLE IV 500 mg/100 ml 500 MG/100 ML BAG IVPB SCH ×3 (06:04→21:50)
[2016-10-12 07:13] LABS: BASO # 0.02 K/mm3 (0.0-2.0); BASO % 0.3 % (0.0-3.0); EOS # 0.3 (0.0-0.7); EOS % 3.9 % (1.5-5.0); GRAN # 4.21 (1.4-6.5); LYMPH # 2.2 (1.2-3.4); LYMPH % 29.6 % (22.0-35.0); MEAN CELL VOLUME 88.8 fL (80.0-105.0); MEAN CORPUSCULAR HEMOGLOBIN 30.7 pg (25.0-35.0); MEAN CORPUSCULAR HGB CONC 34.6 g/dl (31.0-37.0); MEAN PLATELET VOLUME 10.5 fl (7.0-11.0); MONO # 0.7 (0.1-0.6); MONO % 9.2 % (1.0-6.0); PLATELET COUNT 185 10^3/uL (120.0-450.0); RBC 4.89 10^6/uL (3.5-6.1); RED CELL DISTRIBUTION WIDTH 13.8 % (11.5-14.5); WHITE BLOOD COUNT 7.4 10^3/ul (4.5-11.0)
[2016-10-12 07:22] LABS: ALBUMIN 3.1 g/dL (3.0-4.8); ALT/SGPT 65 U/L (7-56); AST/SGOT 62 U/L (15-59); BILIRUBIN,DIRECT 0.9 mg/dL (0.0-0.4); BLOOD UREA NITROGEN 8 mg/dL (7-21); CALCIUM 8.5 mg/dL (8.4-10.5); GFR AFRICAN-AMERICAN > 60; GFR NON-AFRICAN AMERICAN > 60; MAGNESIUM 1.8 mg/dL (1.7-2.2)
[2016-10-12] MEDS: Sodium Chloride 0.9% 1,000 ML IV SCH (08:52)
[2016-10-12] MEDS: Cefepime 1gm in NS 100ml 1 GM/100 ML BAG IVPB SCH ×2 (10:22→22:54)
--- NOTE | 2016-10-12 11:32 | CP.PCM.PN ---
Subjective - Date & Time of Evaluation Date of Evaluation: 10/12/16 Time of Evaluation: 11:27 - Subjective Subjective: General Surgery - DR. Zelaya Pt S&E. NAEO. PT denies any abdominal discomfort at all. NO N/V, F/C, SOb/Cp Objective - Vital Signs/Intake and Output Vital Signs (last 24 hours): Temp Pulse Resp BP Pulse Ox 97.8 F 51 L 18 116/68 99 10/12/16 07:30 10/12/16 07:30 10/12/16 07:30 10/12/16 07:30 10/12/16 07:30 Intake and Output: 10/12/16 10/12/16 06:59 18:59 Intake Total 1320 Output Total 1400 Balance -80 - Medications Medications: Current Medications Hydromorphone HCl (Dilaudid) 1 mg IVP Q4H PRN PRN Reason: Pain, moderate (4-7) Metronidazole (Flagyl) 500 mg in 100 mls @ 100 mls/hr IVPB Q8 NICO PRN Reason: Protocol Last Admin: 10/12/16 06:04 Dose: 100 mls/hr Cefepime HCl (Maxipime 1gm) 1 gm in 100 mls @ 100 mls/hr IVPB Q12 NICO PRN Reason: Protocol Last Admin: 10/12/16 10:22 Dose: 100 mls/hr Sodium Chloride (Sodium Chloride 0.9%) 1,000 mls @ 125 mls/hr IV .Q8H NICO Stop: 10/14/16 06:29 Last Admin: 10/12/16 08:52 Dose: 125 mls/hr Ondansetron HCl (Zofran Inj) 4 mg IVP Q4H PRN PRN Reason: Nausea/Vomiting Pantoprazole Sodium (Protonix Inj) 40 mg IVP DAILY [facility] Last Admin: 10/12/16 10:22 Dose: 40 mg - Labs Labs: 10/12/16 06:55 10/12/16 06:55 PT 11.3 Seconds (9.9-11.8) 10/10/16 23:20 INR 1.05 (0.93-1.08) 10/10/16 23:20 APTT 27.5 Seconds (23.7-30.8) 10/10/16 23:20 - Constitutional Appears: No Acute Distress - Head Exam Head Exam: ATRAUMATIC, NORMAL INSPECTION, NORMOCEPHALIC - Eye Exam Eye Exam: EOMI, Normal appearance. absent: Scleral icterus - Respiratory Exam Respiratory Exam: NORMAL BREATHING PATTERN. absent: Respiratory Distress - Cardiovascular Exam Cardiovascular Exam: REGULAR RHYTHM - GI/Abdominal Exam GI & Abdominal Exam: Soft. absent: Distended, Firm, Guarding, Rigid, Tenderness , Rebound - Neurological Exam Neurological Exam: Alert, Oriented x3 - Psychiatric Exam Psychiatric exam: Normal Affect, Normal Mood - Skin Skin Exam: Dry, Intact Assessment and Plan - Assessment and Plan (Free Text) Assessment: 66M w/ abdominal pain, now resolved Plan: - HIDA negative for acute cholecystitis - Symptoms resolved - Continue care as per medical team - No surgical intervention, Surgery will sign -off, reconsult PRN [place] Bates PGY3
--- NOTE | 2016-10-12 11:42 | CP.PCM.PN ---
Subjective - Date & Time of Evaluation Date of Evaluation: 10/12/16 Time of Evaluation: 11:29 - Subjective Subjective: 56M PT S&E at bedside. NAEON. Patient denies abdominal pain, F/C, N/V, C/D. Objective - Vital Signs/Intake and Output Vital Signs (last 24 hours): Temp Pulse Resp BP Pulse Ox 97.8 F 51 L 18 116/68 99 10/12/16 07:30 10/12/16 07:30 10/12/16 07:30 10/12/16 07:30 10/12/16 07:30 Intake and Output: 10/12/16 10/12/16 06:59 18:59 Intake Total 1320 Output Total 1400 Balance -80 - Medications Medications: Current Medications Hydromorphone HCl (Dilaudid) 1 mg IVP Q4H PRN PRN Reason: Pain, moderate (4-7) Metronidazole (Flagyl) 500 mg in 100 mls @ 100 mls/hr IVPB Q8 NICO PRN Reason: Protocol Last Admin: 10/12/16 06:04 Dose: 100 mls/hr Cefepime HCl (Maxipime 1gm) 1 gm in 100 mls @ 100 mls/hr IVPB Q12 NICO PRN Reason: Protocol Last Admin: 10/12/16 10:22 Dose: 100 mls/hr Sodium Chloride (Sodium Chloride 0.9%) 1,000 mls @ 125 mls/hr IV .Q8H [facility] Stop: 10/14/16 06:29 Last Admin: 10/12/16 08:52 Dose: 125 mls/hr Ondansetron HCl (Zofran Inj) 4 mg IVP Q4H PRN PRN Reason: Nausea/Vomiting Pantoprazole Sodium (Protonix Inj) 40 mg IVP DAILY [facility] Last Admin: 10/12/16 10:22 Dose: 40 mg - Labs Labs: 10/12/16 06:55 10/12/16 06:55 PT 11.3 Seconds (9.9-11.8) 10/10/16 23:20 INR 1.05 (0.93-1.08) 10/10/16 23:20 APTT 27.5 Seconds (23.7-30.8) 10/10/16 23:20
--- NOTE | 2016-10-12 13:41 | NM ---
PROCEDURE: Nuclear Medicine Hepatobiliary Scan HISTORY: ??CHOLECYSTITIS COMPARISON: None available. TECHNIQUE: 6.0 mCi of technetium 99m Mebrofenin was administered intravenously. Planar images of the abdomen were obtained at 5 min intervals to 60 mins. Delayed images were also obtained. FINDINGS: LIVER: Timely and homogenous uptake. COMMON BILE DUCT: identified at 15 mins. GALLBLADDER: identified at 30 mins. SMALL BOWEL: Identified at 60 mins. IMPRESSION: Normal Hepatobiliary Scan. The cystic duct is patent.
--- NOTE | 2016-10-12 14:55 | OP ---
DATE OF PROGRESS NOTE: 10/12/2016 SUBJECTIVE: The patient was seen in room 563, bed 2. The patient is having liquid diet, which is ordered by the lawyers. The patient is complaining of abdominal bloating. The patient states that the abdominal pain has almost resolved. Patient's overnight nurses notes were reviewed. PHYSICAL EXAMINATION: VITAL SIGNS: T-max afebrile, heart rate 58, 53, 56, 62, blood pressure 116/68 and 118/67, respirations 18 and O2 sat is 97% to 99%. HEAD: Normocephalic and atraumatic. HEENT: Shows pink conjunctivae. Dry oral mucosa. NECK: No neck rigidity. CHEST: Kyphosis. Positive left upper chest pacemaker defibrillator noted. Positive rhonchi and occasional wheezing bilaterally. LUNGS: Shows no rales, crackles, or wheezing. CARDIOVASCULAR: S1 and S2, regular rhythm. ABDOMEN: Soft. Positive bowel sound. Mild epigastric and periumbilical tenderness. No right upper quadrant tenderness. No rebound tenderness. No Rodriguez sign. No costovertebral angle tenderness. GENITALIA: Male. RECTAL: Deferred. EXTREMITIES: Shows positive LUCITA stockings. NEUROLOGIC: The patient is alert, awake and oriented x3. Cranial nerve II through XII intact. Gait examination is independent. VASCULAR: Papillary pulses. Plantars are downward. MUSCULOSKELETAL: Examination shows a body mas index of 25. DIAGNOSTIC DATA: From 10/12/2016, WBC 7.4, hemoglobin and hematocrit 15 and 43.4, and platelets 185. Sodium 139, potassium 4.1, chloride 104, CO2 of 26, anion gap 13, BUN 8, creatinine 1.1, GFR greater than 60, glucose 90, calcium 8.5, magnesium 1.8, total bilirubin is down to 1.5 from 3.8, direct bilirubin is down to 0.9. AST 62, ALT 65. PSA is slightly elevated at 3.2 for which the patient is being followed by Dr. Stephenson, the urologist. Hepatitis A, B, C serology and HIV is negative. IMPRESSION AND PLAN: 1. Upper abdominal pain, etiology undetermined. 2. Cholelithiasis with possible gallstone passage. 3. Asymptomatic bradycardia. 4. Granulocytosis. 5. Obstructive jaundice with hyperbilirubinemia and transaminitis. 6. Possible gallstone hepatitis 7. Elevated prostate specific antigen of 3.2. 8. Bilirubinuria. 9. Multiple large cholelithiasis. 10. Possible symptomatic cholelithiasis. 11. Hepatic steatosis. 12. Multiple large cholelithiasis with partially distended gallbladder. 13. Fatty liver and hepatic steatosis with anterior hepatic nodular lesion. 14. History of bladder carcinoma. 15. History of cholelithiasis. 16. History of hyperuricemia. PLAN: At this time, the patient is seen by gastroenterology and surgery . CURRENT MEDICATIONS: Dilaudid 1 mg IV q. 4 hours p.r.n., Flagyl 500 IV q. 8 hours; cefepime 1 g IV q. 12 hours, Protonix 40 IV daily, IV fluid 0.9 normal saline at 1.5 mL an hour; Zofran 4 mg IV q. 4 hours p.r.n. Official HIDA scan results are pending. It is not available in [employer] [facility]. The patient is updated about this condition, diagnoses, frequent plan and management plan at length and all questions and concerns answered to their satisfaction. Daniel Comer MD cc:
--- NOTE | 2016-10-12 15:17 | PN ---
DATE: 10/12/2016 SUBJECTIVE: I saw Mr. Mazariegos this morning. He is a 66-year-old male admitted with complaints of 5 to 6 hours of diffuse abdominal pain prior to admission. I reviewed the respective radiology evaluations, I counseled yesterday which included chest, abdomen, and pelvic CT as well as a brain nuclear scan as well as an ultrasound. At bedside this morning, the patient is asymptomatic and no problems. He tolerated a liquid diet alright. The patient expressed a desire to increase consistency of diet which I will do this morning. PHYSICAL EXAMINATION: VITAL SIGNS: I reviewed this patient's vital signs HEENT: Exam is noncontributory. LUNGS: Clear to auscultation. Except for a decreased breath sounds at the right base. HEART: Regular rhythm. ABDOMEN: Soft. No tenderness elicited. LABORATORY DATA: I reviewed this patient's laboratory data yesterday. ASSESSMENT AND PLAN: This is a 66-year-old male who is here with complaints of acute onset, diffuse abdominal pain associated with elevated liver function tests. In retrospect, given the results of all the recurrent studies, I discussed the case with Dr. Comer and indicated that most likely scenario was a gallstone pass through the bile duct with subsequent increase in liver function tests and then a gradual decrease, as the stone passed into the small bowel. The patient has now acute evidence grossly of cholecystitis. I reviewed several issues with the patient this morning including the fact that even though the surgeon indicated no cholecystectomy at the current time point, given the numeral gallstones in the gallbladder it is inevitable he will present with another episode of severe biliary colic which could be resolved in the future by prophylactic cholecystectomy which will be done as an outpatient. I also reviewed results of the patient's radiology evaluation. In fact from the gallstones measuring previously, there is a question of a ooze from the liver, however, the CT scan revealed no gross lesion or ductal dilatation. Notes that on ultrasound, the hepatic structures mildly heterogeneous which could be suggestive of extensive hepatic steatosis. According to the hepatic ultrasound study, there was a 2.4 cm x 3 cm low attenuation nodular lesion in the entry portion of the liver. This has to be clarified by another radiology studies sometime down the road. If this turns out to be true entity, this can be proposed either one of two ways either by intentional radiology percutaneous or by endoscopic ultrasound FNA. This can be performed as an outpatient. Again, I indicated that this patient should have a discussion with Dr. Comer regarding the two prior issues. The patient's diet will be advanced today and Dr. Comer will follow up with the patient later on this morning to discuss possible discharge. Taras Moore DO
[2016-10-12] MEDS ORDERED: Barium Sulfate Susp 2.1% w/v, 2.0% w/w 450 mL Bottle PO ONE (15:39)
--- NOTE | 2016-10-12 15:55 | CP.PCM.PN ---
Subjective - Date & Time of Evaluation Date of Evaluation: 10/12/16 Time of Evaluation: 07:45 - Subjective Subjective: Patient is a 66 year old male PMH bladder cancer, colon polps, rectal abscess who presented to [facility] [facility] 10/10/16was seen this morning at bedside in no acute distress. He states he slept well and the abdominal pain he had when he was admitted has resolved. Patient denies n/v/d, chest pain, shortness of breath, headache. Patient tolerating diet well. Objective - Vital Signs/Intake and Output Vital Signs (last 24 hours): Temp Pulse Resp BP Pulse Ox 97.8 F 51 L 18 116/68 99 10/12/16 07:30 10/12/16 07:30 10/12/16 07:30 10/12/16 07:30 10/12/16 07:30 Intake and Output: 10/12/16 10/12/16 06:59 18:59 Intake Total 1320 Output Total 1400 Balance -80 - Medications Medications: Current Medications Metronidazole (Flagyl) 500 mg in 100 mls @ 100 mls/hr IVPB Q8 NICO PRN Reason: Protocol Last Admin: 10/12/16 13:45 Dose: 100 mls/hr Cefepime HCl (Maxipime 1gm) 1 gm in 100 mls @ 100 mls/hr IVPB Q12 NICO PRN Reason: Protocol Last Admin: 10/12/16 10:22 Dose: 100 mls/hr Sodium Chloride (Sodium Chloride 0.9%) 1,000 mls @ 125 mls/hr IV .Q8H NICO Stop: 10/14/16 06:29 Last Admin: 10/12/16 08:52 Dose: 125 mls/hr Ondansetron HCl (Zofran Inj) 4 mg IVP Q4H PRN PRN Reason: Nausea/Vomiting Last Admin: 10/12/16 14:59 Dose: 4 mg Pantoprazole Sodium (Protonix Inj) 40 mg IVP DAILY NICO Last Admin: 10/12/16 10:22 Dose: 40 mg - Labs Labs: 10/12/16 06:55 10/12/16 06:55 PT 11.3 Seconds (9.9-11.8) 10/10/16 23:20 INR 1.05 (0.93-1.08) 10/10/16 23:20 APTT 27.5 Seconds (23.7-30.8) 10/10/16 23:20 - Head Exam Head Exam: ATRAUMATIC, NORMAL INSPECTION, NORMOCEPHALIC - Eye Exam Eye Exam: EOMI, Normal appearance - ENT Exam ENT Exam: Mucous Membranes Moist, Normal Exam - Respiratory Exam Respiratory Exam: Clear to Ausculation Bilateral, NORMAL BREATHING PATTERN - Cardiovascular Exam Cardiovascular Exam: REGULAR RHYTHM, +S1, +S2. absent: Clicks, Gallop - GI/Abdominal Exam GI & Abdominal Exam: Soft, Normal Bowel Sounds - Neurological Exam Neurological Exam: Alert, Awake, Oriented x3 - Skin Skin Exam: Normal Color, Warm Assessment and Plan - Assessment and Plan (Free Text) Assessment: 66 year old male PMH bladder cancer, colon polyps, rectal abscess here with complaints of abdominal pain diagnosed with cholelithiasis. Plan: 1.Abdominal Pain - CT abdomen reveals multiple large gallstones - Continue to trend LFTs; will monitor - Continue with metronidazole 500 mg IVPB Q8H - Continue with cefepime 1 gm IVPB Q12H - Zofran 4 mg IVP Q4H 2. Bladder Ca Hx - Continues to follow with Urology - Next biopsy due is next week with Urology; patient goes q4 months DVT/GI prophylaxis- Protonix 40 mg IVP qD/Knee SCDs
[2016-10-12 16:30] LABS: BASO # 0.02 K/mm3 (0.0-2.0); BASO % 0.3 % (0.0-3.0); EOS # 0.1 (0.0-0.7); EOS % 1.7 % (1.5-5.0); GRAN # 4.97 (1.4-6.5); GRAN % 70.5 % (50.0-68.0); HEMOGLOBIN 15.1 gm/dL (14.0-18.0); LYMPH # 1.4 (1.2-3.4); LYMPH % 20.1 % (22.0-35.0); MEAN CELL VOLUME 88.3 fL (80.0-105.0); MEAN CORPUSCULAR HEMOGLOBIN 30.5 pg (25.0-35.0); MEAN CORPUSCULAR HGB CONC 34.6 g/dl (31.0-37.0); MEAN PLATELET VOLUME 9.7 fl (7.0-11.0); MONO # 0.5 (0.1-0.6); MONO % 7.4 % (1.0-6.0); PLATELET COUNT 180 10^3/uL (120.0-450.0); RBC 4.95 10^6/uL (3.5-6.1); RED CELL DISTRIBUTION WIDTH 13.7 % (11.5-14.5); WHITE BLOOD COUNT 7.1 10^3/ul (4.5-11.0)
[2016-10-12 16:35] LABS: ALB/GLOB RATIO 1.1 (1.1-1.8); ALBUMIN 3.3 g/dL (3.0-4.8); ALT/SGPT 65 U/L (7-56); AST/SGOT 56 U/L (15-59); BLOOD UREA NITROGEN 7 mg/dL (7-21); CALCIUM 8.5 mg/dL (8.4-10.5); GFR AFRICAN-AMERICAN > 60; GFR NON-AFRICAN AMERICAN > 60
[2016-10-12 16:52] LABS: TOTAL PSA 3.1 ng/mL (<=4.0)
--- NOTE | 2016-10-12 17:01 | CARD ---
APPROVED REPORT EKG Measurement Heart [id number] <Conclusion> Marked sinus bradycardia Abnormal ECG
[2016-10-12] MEDS ORDERED: Morphine 2 mg/ml ISec IVP PRN (17:11)
[2016-10-12] MEDS: Latanoprost 2.5 ml Opht Soln OD SCH ×3 (18:15→21:50)
[2016-10-12] MEDS ORDERED: Iohexol 350 MG/100 ML VIAL ONE (18:29)
--- NOTE | 2016-10-12 23:34 | CP.PCM.PCO ---
Physician Communication Note - Physician Communication Note Physician Communication Note: Doing well-EUS if bloating persists/No surgery now
[2016-10-13] MEDS: metroNIDAZOLE IV 500 mg/100 ml 500 MG/100 ML BAG IVPB SCH ×3 (05:41→21:08)
[2016-10-13 07:28] LABS: BASO # 0.02 K/mm3 (0.0-2.0); BASO % 0.3 % (0.0-3.0); EOS # 0.2 (0.0-0.7); EOS % 2.5 % (1.5-5.0); GRAN # 3.37 (1.4-6.5); GRAN % 52.7 % (50.0-68.0); LYMPH # 2.2 (1.2-3.4); MEAN CELL VOLUME 88.8 fL (80.0-105.0); MEAN CORPUSCULAR HEMOGLOBIN 30.6 pg (25.0-35.0); MEAN CORPUSCULAR HGB CONC 34.5 g/dl (31.0-37.0); MEAN PLATELET VOLUME 10.6 fl (7.0-11.0); MONO # 0.6 (0.1-0.6); MONO % 9.5 % (1.0-6.0); PLATELET COUNT 186 10^3/uL (120.0-450.0); RED CELL DISTRIBUTION WIDTH 13.7 % (11.5-14.5); WHITE BLOOD COUNT 6.4 10^3/ul (4.5-11.0)
[2016-10-13 07:42] LABS: ALBUMIN 3.3 g/dL (3.0-4.8); ALT/SGPT 57 U/L (7-56); AST/SGOT 46 U/L (15-59); BILIRUBIN,DIRECT 0.7 mg/dL (0.0-0.4); BLOOD UREA NITROGEN 6 mg/dL (7-21); CALCIUM 8.6 mg/dL (8.4-10.5); GFR AFRICAN-AMERICAN > 60; GFR NON-AFRICAN AMERICAN > 60; MAGNESIUM 1.8 mg/dL (1.7-2.2)
--- NOTE | 2016-10-13 07:43 | CP.PCM.PN ---
Subjective - Date & Time of Evaluation Date of Evaluation: 10/13/16 Time of Evaluation: 07:15 - Subjective Subjective: Patient is a 66 year old male PMH bladder cancer, colon polps, rectal abscess who presented to [facility] 10/10/16 was seen this morning at bedside in no acute distress. Yesterday evening, patient starting feeling the same symptoms that caused him to be admitted in the first place; diffuse abdominal pain with nausea /vomiting. Patient was given dilaudid and zofran; symptoms resolved. Patient was reevaluated by surgery. Due to resolving of symptoms surgery states nothing to do at this time. If symptoms resolve EUS will be performed by surgery. Patient was seen this morning with no complaints. He states he made a soft bowel movement this morning. Patient also makes note of bullae that appeared overnight on lateral upper left thigh. Denies abdominal pain, nausea, vomiting, chest pain, shortness of breath, headache. Objective - Vital Signs/Intake and Output Vital Signs (last 24 hours): Temp Pulse Resp BP Pulse Ox 97.1 F L 50 L 20 120/67 98 10/12/16 18:05 10/12/16 18:05 10/12/16 18:05 10/12/16 18:05 10/12/16 18:05 Intake and Output: 10/13/16 10/13/16 06:59 18:59 Intake Total 360 Balance 360 - Medications Medications: Current Medications Metronidazole (Flagyl) 500 mg in 100 mls @ 100 mls/hr IVPB Q8 NICO PRN Reason: Protocol Last Admin: 10/13/16 05:41 Dose: 100 mls/hr Cefepime HCl (Maxipime 1gm) 1 gm in 100 mls @ 100 mls/hr IVPB Q12 NICO PRN Reason: Protocol Last Admin: 10/12/16 22:54 Dose: 100 mls/hr Sodium Chloride (Sodium Chloride 0.9%) 1,000 mls @ 125 mls/hr IV .Q8H [facility] Stop: 10/14/16 06:29 Last Admin: 10/12/16 08:52 Dose: 125 mls/hr Latanoprost (Xalatan Opht) 0 ml OD HS NICO Last Admin: 10/12/16 21:50 Dose: 2.5 ml Metoclopramide HCl (Reglan) 10 mg IVP Q6H NICO Morphine Sulfate (Morphine) 2 mg IVP Q4H PRN PRN Reason: Pain, severe (8-10) Ondansetron HCl (Zofran Inj) 4 mg IVP Q4H PRN PRN Reason: Nausea/Vomiting Last Admin: 10/12/16 14:59 Dose: 4 mg Pantoprazole Sodium (Protonix Inj) 40 mg IVP DAILY [facility] Last Admin: 10/12/16 10:22 Dose: 40 mg - Labs Labs: 10/12/16 16:22 10/12/16 16:22 PT 11.3 Seconds (9.9-11.8) 10/10/16 23:20 INR 1.05 (0.93-1.08) 10/10/16 23:20 APTT 27.5 Seconds (23.7-30.8) 10/10/16 23:20 - Constitutional Appears: Well, No Acute Distress - Head Exam Head Exam: ATRAUMATIC, NORMAL INSPECTION, NORMOCEPHALIC - Eye Exam Eye Exam: EOMI, Normal appearance - ENT Exam ENT Exam: Mucous Membranes Moist, Normal Exam - Respiratory Exam Respiratory Exam: Clear to Ausculation Bilateral, NORMAL BREATHING PATTERN - Cardiovascular Exam Cardiovascular Exam: REGULAR RHYTHM, RRR, +S1, +S2 - GI/Abdominal Exam GI & Abdominal Exam: Distended, Soft, Normal Bowel Sounds - Neurological Exam Neurological Exam: Alert, Awake, Oriented x3 - Psychiatric Exam Psychiatric exam: Normal Affect, Normal Mood - Skin Skin Exam: Normal Color, Warm Additional comments: Bullae on lateral left thigh Assessment and Plan - Assessment and Plan (Free Text) Assessment: 66 year old male PMH bladder cancer, colon polyps, rectal abscess here with complaints of abdominal pain diagnosed with cholelithiasis. Plan: 1.Abdominal Pain - Cholelithiasis vs Choledecolithiasis vs Pancreatic carcinoma vs resolving pancreatitis - CT abdomen W IV and PO contrast reveals multiple large gallstones, dilated common bile duct 15 mm, solitary peripancreatic lymph node - LFTs continue to downtrend; will monitor - Continue with metronidazole 500 mg IVPB Q8H - Continue with cefepime 1 gm IVPB Q12H - Zofran 4 mg IVP Q4H - GI and Surgery consulted, in discussion with both teams EUS recommended, will discuss with attending who to consult for procedure 2. Bladder Ca Hx - Continues to follow with Urology - Next biopsy due is next week with Urology; patient goes q4 months DVT/GI prophylaxis- Protonix 40 mg IVP qD/Knee SCDs
--- NOTE | 2016-10-13 08:26 | CT ---
PROCEDURE: CT Abdomen and Pelvis with contrast HISTORY: Abdominal pain returned COMPARISON: 10/11/2016 TECHNIQUE: Contrast dose: 100 cc of Omni 350 Radiation dose: Total exam DLP = 1029 mGy-cm. This CT exam was performed using one or more of the following dose reduction techniques: Automated exposure control, adjustment of the mA and/or kV according to patient size, and/or use of iterative reconstruction technique. FINDINGS: LOWER THORAX: Unremarkable. LIVER: Unremarkable. No gross lesion or ductal dilatation. GALLBLADDER AND BILE DUCTS: Multiple large gallstones. No change from earlier exam. No evidence of pericholecystic fluid or inflammation. The common duct measures 15 mm in diameter. There is no evidence of a common duct stone or pancreatic lesion. There is a normal tapering appearance. PANCREAS: Unremarkable. No gross lesion or ductal dilatation. SPLEEN: Unremarkable. ADRENALS: Unremarkable. No mass. KIDNEYS AND URETERS: Unremarkable. No hydronephrosis. No solid mass. VASCULATURE: Unremarkable. No aortic aneurysm. BOWEL: Unremarkable. No obstruction. No gross mural thickening. APPENDIX: Normal appendix. PERITONEUM: Unremarkable. No free fluid. No free air. LYMPH NODES: There is a large solitary lymph node adjacent to the pancreas seen on image 57 series 2. This measures 17 x 29 mm. BLADDER: Unremarkable. REPRODUCTIVE: Unremarkable. BONES: No acute fracture. OTHER FINDINGS: None. IMPRESSION: Multiple gallstones and dilated common bile duct. No evidence of acute cholecystitis. Solitary enlarged peripancreatic lymph node, significance uncertain.
[2016-10-13] MEDS: Sodium Chloride 0.9% 1,000 ML IV SCH ×3 (08:56→18:06)
--- NOTE | 2016-10-13 09:49 | PN ---
DATE: 10/13/2016 SUBJECTIVE: I saw Mr. Mazariegos this morning. He is a 66-year-old male who complains of severe abdominal pain which resolved rather acutely after presumably passing a gallstone. Review of laboratory data indicates improving LFTs in the past couple of days. Note that the patient has had several studies since he has been here. Chest, abdomen, and pelvis CT as well as the HIDA scan was reviewed, not for her constipation. The patient apparently had a followup abdomen and pelvic CT done yesterday. The report has apparently not been computerized as of yet. At the bedside this morning, the patient is asymptomatic. He indicated with advance in diet yesterday, he had small amount of bloating. He has no abdominal pain this morning but that he had pain yesterday. PHYSICAL EXAMINATION: VITAL SIGNS: I reviewed this patient's vital signs. HEENT: Exam is noncontributory. HEART: Regular rhythm. LUNGS: Clear to auscultation. ABDOMEN: Soft. No tenderness elicited. Normal bowel sounds noted. LABORATORY DATA: Review of laboratory indicates white count of 7.1, this was yesterday. H and H 15 and 43. Chemistry indicates a substantial decrease in his LFTs relative to the day of admission. AST and ALT ratio of 56 with bilirubin yesterday was 0.9. Note that the CT report is not in the computer as of yet. Review of CT images indicated the relatively clear. No intrahepatic biliary dilatation, showed distended gallbladder. At least on the CT images and finally on the computer, I can see evidence of a nodular kidney anterior portion of the liver on the right side. Pancreas looks to be noncontributory except for one small area of large pancreatic duct in the midbody. Remainder of the pancreas is noncontributory. No evidence of acute pancreatitis. Review of the large bowel and small bowel are noncontributory. Official interpretation from Radiology is pending. ASSESSMENT AND PLAN: This is a 66-year-old male with onset of severe abdominal pain several hours after eating. Pain was most likely associated with passage of a gallstone down the bile duct with subsequent decompression after the stone passed into the small bowel. Note that, he has had decrease in LFTs since the event. The patient has been seen by multiple consultants including surgery as well as Dr. Comer. I reviewed the respective notes. Again, as indicated previously, I think based on the CT picture and the clinical scenario, a biliary colic due to gallstone passage is this patient will need a cholecystectomy at some point of time of which can be discussed by the patient with surgery as well as Dr. Comer. Note that this patient should probably have advance of diet today. Several issues as (1) rationale for continued antibiotics and (2) the reason surgeons prefer to defer cholecystectomy. Taars Moore DO
[2016-10-13] MEDS: Cefepime 1gm in NS 100ml 1 GM/100 ML BAG IVPB SCH ×2 (10:40→22:23)
--- NOTE | 2016-10-13 12:43 | CP.PCM.PCO ---
Physician Communication Note - Physician Communication Note Physician Communication Note: Still bloating-Needs EUS/Poss gb surgery(Saul away 2 weeks)
--- NOTE | 2016-10-13 16:06 | CP.PCM.CON ---
<Gertrude Nettles - Last Filed: 10/13/16 16:28> History of Present Illness - History of Present Illness History of Present Illness: PGY4 GI Initial Consult Hemanth Mazariegos is a 66M w/ hx of bladder Ca, gout who presented to the Ed with abd pain. onset was 4-5 days ago. Pt initially labs showed elevated LFTs and imaging indicated cholelithiasis w/ dilated CBD and a peripancreatic lymph node. Pt was managed conservatively has probab biliary colic. Pt pain was located on the RUQ & RLQ. He described it as colicky and exacerbated with meals. Pt states the pain was a 10 out of 10. Pt denied any fever, chills or diaphoresis. GI was consulted to possible liver lesion seen on the First CT abd and also due to the dilated CBD for possible EUS. Pt's pain is now controlled and LFTs are trending down. His only complaint is post-prandial bloating. Denies any nausea, diarrhea or vomiting ROS: 12-point ROS was conducted and was neg other than previously mentioned above PMHx: see above, rectal abscesses, hemorrhoids Meds: reviewed in chart NKDA PSHx: denies abd surgery PSH: denies T/EtOH/ Drug use. FHx: noncontributory Endoscopy hx: states that he had a colonoscpy on 2001 and ployps were found as per pt, unsure about EGD Past Patient History - Infectious Disease Hx of Infectious Diseases: None - Tetanus Immunizations Tetanus Immunization: Unknown - Past Medical History & Family History Past Medical History?: Yes - Past Social History Smoking Status: Never Smoked - CARDIAC Hx Cardiac Disorders: No - PULMONARY Hx Respiratory Disorders: No - NEUROLOGICAL Hx Neurological Disorder: No - HEENT Hx Glaucoma: Yes (BILAT.) - RENAL Hx Chronic Kidney Disease: No - ENDOCRINE/METABOLIC Hx Endocrine Disorders: No - HEMATOLOGICAL/ONCOLOGICAL Hx Cancer: Yes (BLADDER) - INTEGUMENTARY Hx Dermatological Problems: No - MUSCULOSKELETAL/RHEUMATOLOGICAL Hx Musculoskeletal Disorders: Yes Hx Falls: No Hx Fractures: Yes (HX FRACTURE RIB AUGUST 2013) Hx Gout: Yes Other/Comment: HX FRACTURE RIB AUGUST 2013 - GASTROINTESTINAL Hx Gastrointestinal Disorders: Yes (biliary stones, hemorrhoids) Hx Gall Bladder Disease: Yes (STONES) Other/Comment: RECTAL ABSCESS - GENITOURINARY/GYNECOLOGICAL Hx Genitourinary Disorders: Yes Hx Hematuria: Yes - PSYCHIATRIC Hx Psychophysiologic Disorder: No - SURGICAL HISTORY Other/Comment: Cysto. RECTAL ABSCESS X 2 - ANESTHESIA Hx Anesthesia: Yes Hx Anesthesia Reactions: No Hx Malignant Hyperthermia: No Meds Home Medications: Home Medication List Medication Instructions Recorded Confirmed Type Ciprofloxacin [Cipro] 500 mg PO BID #14 tab 10/12/16 Rx Pantoprazole [Protonix] 40 mg PO DAILY #30 ect 10/12/16 Rx metroNIDAZOLE [Flagyl] 500 mg PO TID #21 tab 10/12/16 Rx Allergies/Adverse Reactions: Allergies Allergy/AdvReac Type Severity Reaction Status Date / Time No Known Allergies Allergy Verified 06/06/12 09:45 - Medications Medications: Current Medications Metronidazole (Flagyl) 500 mg in 100 mls @ 100 mls/hr IVPB Q8 NICO PRN Reason: Protocol Last Admin: 10/13/16 14:04 Dose: 100 mls/hr Cefepime HCl (Maxipime 1gm) 1 gm in 100 mls @ 100 mls/hr IVPB Q12 NICO PRN Reason: Protocol Last Admin: 10/13/16 10:40 Dose: 100 mls/hr Sodium Chloride (Sodium Chloride 0.9%) 1,000 mls @ 125 mls/hr IV .Q8H NICO Stop: 10/14/16 06:29 Last Admin: 10/13/16 10:42 Dose: 125 mls/hr Latanoprost (Xalatan Opht) 0 ml OD HS NICO Last Admin: 10/12/16 21:50 Dose: 2.5 ml Metoclopramide HCl (Reglan) 10 mg IVP Q6H NICO Last Admin: 10/13/16 14:05 Dose: 10 mg Morphine Sulfate (Morphine) 2 mg IVP Q4H PRN PRN Reason: Pain, severe (8-10) Ondansetron HCl (Zofran Inj) 4 mg IVP Q4H PRN PRN Reason: Nausea/Vomiting Last Admin: 10/12/16 14:59 Dose: 4 mg Pantoprazole Sodium (Protonix Inj) 40 mg IVP DAILY [facility] Last Admin: 10/13/16 10:40 Dose: 40 mg Physical Exam - Head Exam Head Exam: ATRAUMATIC, NORMOCEPHALIC - Eye Exam Eye Exam: Normal appearance - ENT Exam ENT Exam: Mucous Membranes Moist, Normal Exam - Neck Exam Neck exam: Positive for: Normal Inspection - Respiratory Exam Respiratory Exam: Clear to Auscultation Bilateral, NORMAL BREATHING PATTERN. absent: Rales, Rhonchi, Wheezes, Respiratory Distress - Cardiovascular Exam Cardiovascular Exam: REGULAR RHYTHM, +S1, +S2 - GI/Abdominal Exam GI & Abdominal Exam: Normal Bowel Sounds, Soft. absent: Organomegaly, Pulsatile Mass, Rebound, Rigid - Extremities Exam Extremities exam: Positive for: normal inspection - Neurological Exam Neurological exam: Alert, Oriented x3 - Psychiatric Exam Psychiatric exam: Normal Affect, Normal Mood - Skin Skin Exam: Dry, Intact, Normal Color, Warm Results - Vital Signs Recent Vital Signs: Last Vital Signs Temp 97.9 F 10/13/16 07:30 Pulse 53 L 10/13/16 07:30 Resp 18 10/13/16 07:30 BP 121/69 10/13/16 07:30 Pulse Ox 97 10/13/16 07:30 - Labs Result Diagrams: 10/13/16 07:00 10/13/16 07:00 Labs: Laboratory Results - last 24 hr 10/12/16 10/12/16 10/13/16 16:22 16:22 07:00 WBC 7.1 6.4 RBC 4.95 4.90 Hgb 15.1 15.0 Hct 43.7 43.5 MCV 88.3 88.8 MCH 30.5 30.6 MCHC 34.6 34.5 RDW 13.7 13.7 Plt Count 180 186 MPV 9.7 10.6 Gran % 70.5 H 52.7 Lymph % (Auto) 20.1 L 35.0 Crockett % (Auto) 7.4 H 9.5 H Eos % (Auto) 1.7 2.5 Baso % (Auto) 0.3 0.3 Gran # 4.97 3.37 Lymph # 1.4 2.2 Crockett # 0.5 0.6 Eos # 0.1 0.2 Baso # 0.02 0.02 Sodium 139 Potassium 3.6 Chloride 104 Carbon Dioxide 24 Anion Gap 15 BUN 7 Creatinine 1.1 Est GFR ( Amer) > 60 Est GFR (Non-Af Amer) > 60 Random Glucose 110 Calcium 8.5 Magnesium Total Bilirubin 2.5 H Direct Bilirubin AST 56 ALT 65 H Alkaline Phosphatase 79 Total Protein 6.4 Albumin 3.3 Globulin 3.1 Albumin/Globulin Ratio 1.1 10/13/16 07:00 WBC RBC Hgb Hct MCV MCH MCHC RDW Plt Count MPV Gran % Lymph % (Auto) Crockett % (Auto) Eos % (Auto) Baso % (Auto) Gran # Lymph # Crockett # Eos # Baso # Sodium 139 Potassium 3.7 Chloride 104 Carbon Dioxide 27 Anion Gap 12 BUN 6 L Creatinine 1.1 Est GFR ( Amer) > 60 Est GFR (Non-Af Amer) > 60 Random Glucose 93 Calcium 8.6 Magnesium 1.8 Total Bilirubin 1.3 Direct Bilirubin 0.7 H AST 46 ALT 57 H Alkaline Phosphatase 73 Total Protein 6.4 Albumin 3.3 Globulin 3.2 Albumin/Globulin Ratio 1.0 L Assessment & Plan - Assessment and Plan (Free Text) Assessment: Hemanth Mazariegos is 66M w/ hx of bladder ca who presents with abd pain likely 2/[address] abd may be concerning for hepatic mass and revealed a dilated CBD > 1cm with no evidence of CBD stone. DDx include mass vs anatomic variance vs post passage of stone. Dilated CBD and possible hepatic mass Peripancreatic lymph node Cholelithiasis Biliary colic Bloating, post prandial Plan: -Cholelithiasis plans as per surgery -LFTs are trending down, likely 2/2 passage of stone -EUS as oupt -Screening colonoscopy as Oupt -Advance diet as tolerated Had an extensive converation with the pt and his family, recommend eventual lap suni and EUS as an oupt with a screening colonscopy recommend f.u w. Dr. Williamson D/W Dr. Williamson <Myles Williamson - Last Filed: 10/13/16 17:30> Meds - Medications Medications: Current Medications Metronidazole (Flagyl) 500 mg in 100 mls @ 100 mls/hr IVPB Q8 NICO PRN Reason: Protocol Last Admin: 10/13/16 14:04 Dose: 100 mls/hr Cefepime HCl (Maxipime 1gm) 1 gm in 100 mls @ 100 mls/hr IVPB Q12 NICO PRN Reason: Protocol Last Admin: 10/13/16 10:40 Dose: 100 mls/hr Sodium Chloride (Sodium Chloride 0.9%) 1,000 mls @ 125 mls/hr IV .Q8H NICO Stop: 10/14/16 06:29 Last Admin: 10/13/16 10:42 Dose: 125 mls/hr Latanoprost (Xalatan Opht) 0 ml OD HS [facility] Last Admin: 10/12/16 21:50 Dose: 2.5 ml Metoclopramide HCl (Reglan) 10 mg IVP Q6H NICO Last Admin: 10/13/16 14:05 Dose: 10 mg Morphine Sulfate (Morphine) 2 mg IVP Q4H PRN PRN Reason: Pain, severe (8-10) Ondansetron HCl (Zofran Inj) 4 mg IVP Q4H PRN PRN Reason: Nausea/Vomiting Last Admin: 10/12/16 14:59 Dose: 4 mg Pantoprazole Sodium (Protonix Inj) 40 mg IVP DAILY [facility] Last Admin: 10/13/16 10:40 Dose: 40 mg Results - Vital Signs Recent Vital Signs: Last Vital Signs Temp 97.9 F 10/13/16 07:30 Pulse 53 L 10/13/16 07:30 Resp 18 10/13/16 07:30 BP 121/69 10/13/16 07:30 Pulse Ox 97 10/13/16 07:30 - Labs Result Diagrams: 10/13/16 07:00 10/13/16 07:00 Labs: Laboratory Results - last 24 hr 10/13/16 10/13/16 07:00 07:00 WBC 6.4 RBC 4.90 Hgb 15.0 Hct 43.5 MCV 88.8 MCH 30.6 MCHC 34.5 RDW 13.7 Plt Count 186 MPV 10.6 Gran % 52.7 Lymph % (Auto) 35.0 Crockett % (Auto) 9.5 H Eos % (Auto) 2.5 Baso % (Auto) 0.3 Gran # 3.37 Lymph # 2.2 Crockett # 0.6 Eos # 0.2 Baso # 0.02 Sodium 139 Potassium 3.7 Chloride 104 Carbon Dioxide 27 Anion Gap 12 BUN 6 L Creatinine 1.1 Est GFR ( Amer) > 60 Est GFR (Non-Af Amer) > 60 Random Glucose 93 Calcium 8.6 Magnesium 1.8 Total Bilirubin 1.3 Direct Bilirubin 0.7 H AST 46 ALT 57 H Alkaline Phosphatase 73 Total Protein 6.4 Albumin 3.3 Globulin 3.2 Albumin/Globulin Ratio 1.0 L Attending/Attestation - Attestation I have personally seen and examined this patient.: Yes I have fully participated in the care of the patient.: Yes I have reviewed all pertinent clinical information: Yes Notes (Text): 10/13/16 17:26 We are consulted for possible EUS. This is a 66 year old male with h/o bladder cancer who is admitted with biliary colic and cholelithiasis. He has had two abdominal CT scans and an abdominal ultrasound. There was a questionable liver lesion, but this was not redomonstrated on contrast enhanced CT scan. The bile duct does appear to be dilated on both the initial and subsequent CT scans, without any evidence of choledocholithiasis. He had elevated LFTs on admission that are now downtrending, which may indicated a CBD stone which has passed. 1. Dilated common bile duct 2. Cholelithiasis Plan: -biliary colic and cholelithiasis, would recommend cholecystectomy -LFTs are downtrending and there is no evidence of choledocholithiasis at this time, he may have passed a CBD stone -would continue to monitor his LFTs -would recommend an outpatient EUS to evaluate the dilated CBD further, otherwise would proceed with cholecystectomy at this time
[2016-10-13] MEDS ORDERED: Gadodiamide 287 MG/ML VIAL (20ML) IV ONE (16:08)
--- NOTE | 2016-10-13 17:32 | MRI ---
PROCEDURE: Magnetic Resonance Cholangiopancreatography MRI of the abdomen with and without contrast HISTORY: Dilated common bile duct. Gallstones COMPARISON: CT scan 10/12/2016. TECHNIQUE: Multiplanar, multisequence MR images of the abdomen were obtained, including heavily T2 weighted MRCP images of the biliary system. Rotating maximum intensity projection images of the biliary system were generated. 15 cc of Omniscan FINDINGS: MRCP: The common duct is dilated LIVER: Unremarkable. GALLBLADDER: Unremarkable. SPLEEN: Unremarkable. PANCREAS: Unremarkable. ADRENALS: Unremarkable. KIDNEYS: Unremarkable. AORTA: No aneurysm. ASCITES: None. OTHER FINDINGS: No enhancing lesions IMPRESSION: Multiple large gallstones. Dilated common duct with no evidence of common duct stones.
--- NOTE | 2016-10-13 19:35 | PN ---
DATE: 10/13/2016 SUBJECTIVE: The patient was seen in room 564, bed 1. The patient is out of bed ambulating to the bathroom. The patient developed symptoms of abdominal bloating, fullness, and abdominal distention yesterday for which the patient required a stat CAT scan of the abdomen and pelvis with p.o. and IV contrast, the results of which were reviewed. Today, right now, the patient denies any abdominal bloating, denies any nausea, denies any vomiting, denies any abdominal distention, denies any chest pain, denies any shortness of breath. The patient is ambulating without any discomfort. The patient denies any diarrhea, reports soft bowel movement. PHYSICAL EXAMINATION: VITAL SIGNS: T-Max afebrile, heart rate in high 50s, blood pressure 120-130s/70-60. HEENT: The patient's head examination is normocephalic and atraumatic. HEENT examination shows pink conjunctiva and anicteric sclerae. No oropharyngeal lesion. No neck rigidity. CHEST: Symmetrical. LUNGS: Shows no rales, crackles or wheezing. CARDIOVASCULAR: S1 and S2. Regular rhythm. ABDOMEN: Soft, much less protuberant, much less distended than yesterday, mild epigastric periumbilical tenderness, no costovertebral angle tenderness. GENITALIA: Male. RECTAL: Deferred. EXTREMITIES: Shows no pitting edema. No Kofman's. No Homans sign. NEUROLOGIC: The patient is alert, awake, and oriented x3. Cranial nerves II through XII are intact. Gait examination is independent. VASCULAR: Palpable pulses. Cranial nerves II through XII are intact. PSYCHIATRIC: Negative. LABORATORY DATA: Diagnostic data from 10/13/2016 reviewed, the patient's bilirubin and LFTs are significantly improved. The patient's CBC, chemistry were reviewed. CAT scan of the abdomen and pelvis, which was done with p.o. and IV contrast last night was reviewed. The results were explained to the patient in layman's language. IMPRESSION: 1. Abdominal distention, abdominal bloating (resolved). 2. Dilated common bile duct of 14 mm. 3. Pancreatic head lymphadenopathy. 4. Multiple cholelithiasis with gallbladder wall thickening. 5. Hyperbilirubinemia and transaminitis. 6. Possible gallstone hepatitis. 7. Obstructive jaundice. 8. History of bladder carcinoma. PLAN: At this time, the patient is to be continued on IV antibiotics, IV fluid, IV proton-pump inhibitor, IV Zofran, and the patient started on Reglan 10 mg IV q.6 hours. The patient has been requested to be having a reevaluation with surgery and gastroenterology. The patient's management discussed with the surgery Dr. Alejo. Recommend EUS and a second surgical opinion and a GI opinion for possible EUS. The patient has been updated about his condition. MRCP has been ordered of the abdomen. The patient has been updated about the need for further diagnostic therapeutic intervention, which he acknowledged to understand. All questions and concerns answered. At present, the patient's further management will be dependent upon the above and the patient's clinical condition, hemodynamic status, and as per the patient's responses, diagnostic therapeutic intervention. Daniel Comer MD
--- NOTE | 2016-10-13 19:40 | CP.PCM.PCO ---
Physician Communication Note - Physician Communication Note Physician Communication Note: Lacho Thomason MD as 2nd opinion for surgery
[2016-10-13] MEDS: Latanoprost 2.5 ml Opht Soln OD SCH (21:08)
[2016-10-14] MEDS: metroNIDAZOLE IV 500 mg/100 ml 500 MG/100 ML BAG IVPB SCH (05:10)
[2016-10-14 07:17] LABS: BASO # 0.02 K/mm3 (0.0-2.0); BASO % 0.3 % (0.0-3.0); EOS # 0.2 (0.0-0.7); EOS % 3.2 % (1.5-5.0); GRAN # 4.23 (1.4-6.5); GRAN % 56.4 % (50.0-68.0); HEMOGLOBIN 14.6 gm/dL (14.0-18.0); LYMPH # 2.4 (1.2-3.4); LYMPH % 32.5 % (22.0-35.0); MEAN CELL VOLUME 88.1 fL (80.0-105.0); MEAN CORPUSCULAR HEMOGLOBIN 30.5 pg (25.0-35.0); MEAN CORPUSCULAR HGB CONC 34.6 g/dl (31.0-37.0); MEAN PLATELET VOLUME 10.1 fl (7.0-11.0); MONO # 0.6 (0.1-0.6); MONO % 7.6 % (1.0-6.0); PLATELET COUNT 174 10^3/uL (120.0-450.0); RBC 4.79 10^6/uL (3.5-6.1); RED CELL DISTRIBUTION WIDTH 13.8 % (11.5-14.5); WHITE BLOOD COUNT 7.5 10^3/ul (4.5-11.0)
--- NOTE | 2016-10-14 08:10 | CP.PCM.PN ---
Subjective - Date & Time of Evaluation Date of Evaluation: 10/14/16 Time of Evaluation: 07:30 - Subjective Subjective: Patient is seen this morning. He is lying in bed. Denies abdominal pain. Objective - Vital Signs/Intake and Output Vital Signs (last 24 hours): Temp Pulse Resp BP Pulse Ox 97 F L 61 20 118/66 95 10/13/16 16:00 10/13/16 16:00 10/13/16 16:00 10/13/16 16:00 10/13/16 16:00 Intake and Output: 10/14/16 10/14/16 06:59 18:59 Intake Total 3680 Balance 3680 - Medications Medications: Current Medications Metronidazole (Flagyl) 500 mg in 100 mls @ 100 mls/hr IVPB Q8 NICO PRN Reason: Protocol Last Admin: 10/14/16 05:10 Dose: 100 mls/hr Cefepime HCl (Maxipime 1gm) 1 gm in 100 mls @ 100 mls/hr IVPB Q12 NICO PRN Reason: Protocol Last Admin: 10/13/16 22:23 Dose: 100 mls/hr Latanoprost (Xalatan Opht) 0 ml OD HS NICO Last Admin: 10/13/16 21:08 Dose: 2.5 ml Metoclopramide HCl (Reglan) 10 mg IVP Q6H NICO Last Admin: 10/14/16 05:09 Dose: Not Given Morphine Sulfate (Morphine) 2 mg IVP Q4H PRN PRN Reason: Pain, severe (8-10) Ondansetron HCl (Zofran Inj) 4 mg IVP Q4H PRN PRN Reason: Nausea/Vomiting Last Admin: 10/12/16 14:59 Dose: 4 mg Pantoprazole Sodium (Protonix Inj) 40 mg IVP DAILY [facility] Last Admin: 10/13/16 10:40 Dose: 40 mg - Labs Labs: 10/14/16 06:45 10/13/16 07:00 PT 11.3 Seconds (9.9-11.8) 10/10/16 23:20 INR 1.05 (0.93-1.08) 10/10/16 23:20 APTT 27.5 Seconds (23.7-30.8) 10/10/16 23:20 - Constitutional Appears: No Acute Distress - Head Exam Head Exam: ATRAUMATIC, NORMOCEPHALIC - Cardiovascular Exam Cardiovascular Exam: +S1, +S2 - GI/Abdominal Exam GI & Abdominal Exam: Soft, Normal Bowel Sounds. absent: Tenderness - Neurological Exam Neurological Exam: Alert, Awake Assessment and Plan - Assessment and Plan (Free Text) Assessment: Dilated common bile duct - 14 mm Pancreatic head lymphadenopathy Cholelithiasis Plan: continue Maxipime and Flagyl Patient's bilirubin, AST and ALT are trending downward Patient to have surgical evaluation by Dr. Monet for 2nd opinion regarding cholecystectomy
[2016-10-14 08:13] LABS: ALB/GLOB RATIO 0.9 (1.1-1.8); ALT/SGPT 48 U/L (7-56); AST/SGOT 43 U/L (15-59); BILIRUBIN,DIRECT 0.7 mg/dL (0.0-0.4); BLOOD UREA NITROGEN 6 mg/dL (7-21); CALCIUM 8.6 mg/dL (8.4-10.5); GFR AFRICAN-AMERICAN > 60; GFR NON-AFRICAN AMERICAN > 60; MAGNESIUM 1.7 mg/dL (1.7-2.2)
[2016-10-14 08:33] VITALS: BP 113/67; PULSE 64; RESP 18; TEMP 97.9; O2SAT 96
--- NOTE | 2016-10-14 09:08 | CP.PCM.PN ---
Subjective - Date & Time of Evaluation Date of Evaluation: 10/14/16 Time of Evaluation: 09:05 - Subjective Subjective: General Surgery Progress note for Dr. Wetzel PT S&E at bedside. JUNAID. Patient states he had some pain with eating food yesterday, Patient denies abdominal pain at the moment. Denies F/C, Vomitting. Patient is tolerating pain well with medication. Objective - Vital Signs/Intake and Output Vital Signs (last 24 hours): Temp Pulse Resp BP Pulse Ox 97.9 F 64 18 113/67 96 10/14/16 07:30 10/14/16 07:30 10/14/16 07:30 10/14/16 07:30 10/14/16 07:30 Intake and Output: 10/14/16 10/14/16 06:59 18:59 Intake Total 3680 Balance 3680 - Medications Medications: Current Medications Metronidazole (Flagyl) 500 mg in 100 mls @ 100 mls/hr IVPB Q8 NICO PRN Reason: Protocol Last Admin: 10/14/16 05:10 Dose: 100 mls/hr Cefepime HCl (Maxipime 1gm) 1 gm in 100 mls @ 100 mls/hr IVPB Q12 NICO PRN Reason: Protocol Last Admin: 10/13/16 22:23 Dose: 100 mls/hr Latanoprost (Xalatan Opht) 0 ml OD HS [facility] Last Admin: 10/13/16 21:08 Dose: 2.5 ml Metoclopramide HCl (Reglan) 10 mg IVP Q6H NICO Last Admin: 10/14/16 05:09 Dose: Not Given Morphine Sulfate (Morphine) 2 mg IVP Q4H PRN PRN Reason: Pain, severe (8-10) Ondansetron HCl (Zofran Inj) 4 mg IVP Q4H PRN PRN Reason: Nausea/Vomiting Last Admin: 10/12/16 14:59 Dose: 4 mg Pantoprazole Sodium (Protonix Inj) 40 mg IVP DAILY [facility] Last Admin: 10/13/16 10:40 Dose: 40 mg - Labs Labs: 10/14/16 06:45 10/14/16 06:45 PT 11.3 Seconds (9.9-11.8) 10/10/16 23:20 INR 1.05 (0.93-1.08) 10/10/16 23:20 APTT 27.5 Seconds (23.7-30.8) 10/10/16 23:20 - Head Exam Head Exam: NORMAL INSPECTION, NORMOCEPHALIC - Eye Exam Eye Exam: EOMI, Normal appearance - ENT Exam ENT Exam: Mucous Membranes Moist, Normal Exam - Neck Exam Neck Exam: Full ROM, Normal Inspection - Respiratory Exam Respiratory Exam: NORMAL BREATHING PATTERN. absent: Accessory Muscle Use, Clear to Ausculation Bilateral, Prolonged Expiratory Phase, Rhonchi, Wheezes, Respiratory Distress - Cardiovascular Exam Cardiovascular Exam: REGULAR RHYTHM. absent: Bradycardia, Tachycardia - GI/Abdominal Exam GI & Abdominal Exam: Soft. absent: Firm, Guarding, Rigid, Tenderness, Rebound - Skin Skin Exam: Dry, Intact, Normal Color, Pallor, Warm Assessment and Plan - Assessment and Plan (Free Text) Assessment: 66 M with biliary colic and cholelithiasis Plan: outpatient EUS per GI (Dr. Williamson) continue to monitor LFTs consider cholecystectomy after EUS results c/w current medical management monitor diet tolerance monitor BM. Sarah López DO PGY1
[2016-10-14] MEDS: Cefepime 1gm in NS 100ml 1 GM/100 ML BAG IVPB SCH (09:57)
--- NOTE | 2016-10-14 11:15 | CP.PCM.DIS ---
Provider - Provider Date of Admission: 10/11/16 12:23 Attending physician: Daniel Comer MD Primary care physician: Brayden Bishop MD Consults: GI: Clay Castillo Surgery: Rashard Zelaya Time Spent in preparation of Discharge (in minutes): 34 Diagnosis - Discharge Diagnosis (1) Cholelithiasis Status: Acute Priority: Medium (2) Common bile duct dilation Status: Acute Priority: High (3) Abdominal pain Status: Resolved Priority: Medium (4) Elevated LFTs Status: Resolved Priority: High Hospital Course - Lab Results Lab Results: Most Recent Lab Values WBC 7.5 10^3/ul (4.5-11.0) 10/14/16 06:45 RBC 4.79 10^6/uL (3.5-6.1) 10/14/16 06:45 Hgb 14.6 gm/dL (14.0-18.0) 10/14/16 06:45 Hct 42.2 % (42.0-52.0) 10/14/16 06:45 MCV 88.1 fL (80.0-105.0) 10/14/16 06:45 MCH 30.5 pg (25.0-35.0) 10/14/16 06:45 MCHC 34.6 g/dl (31.0-37.0) 10/14/16 06:45 RDW 13.8 % (11.5-14.5) 10/14/16 06:45 Plt Count 174 10^3/uL (120.0-450.0) 10/14/16 06:45 MPV 10.1 fl (7.0-11.0) 10/14/16 06:45 Gran % 56.4 % (50.0-68.0) 10/14/16 06:45 Lymph % (Auto) 32.5 % (22.0-35.0) 10/14/16 06:45 [place] % (Auto) 7.6 % (1.0-6.0) H 10/14/16 06:45 Eos % (Auto) 3.2 % (1.5-5.0) 10/14/16 06:45 Baso % (Auto) 0.3 % (0.0-3.0) 10/14/16 06:45 Gran # 4.23 (1.4-6.5) 10/14/16 06:45 Lymph # 2.4 (1.2-3.4) 10/14/16 06:45 [place] # 0.6 (0.1-0.6) 10/14/16 06:45 Eos # 0.2 (0.0-0.7) 10/14/16 06:45 Baso # 0.02 K/mm3 (0.0-2.0) 10/14/16 06:45 PT 11.3 Seconds (9.9-11.8) 10/10/16 23:20 INR 1.05 (0.93-1.08) 10/10/16 23:20 APTT 27.5 Seconds (23.7-30.8) 10/10/16 23:20 Sodium 141 mmol/L (132-148) 10/14/16 06:45 Potassium 4.1 mmol/L (3.6-5.0) 10/14/16 06:45 Chloride 107 mmol/L (98-107) 10/14/16 06:45 Carbon Dioxide 26 mmol/L (21-33) 10/14/16 06:45 Anion Gap 12 (10-20) 10/14/16 06:45 BUN 6 mg/dL (7-21) L 10/14/16 06:45 Creatinine 1.1 mg/dL (0.5-1.4) 10/14/16 06:45 Est GFR ( Amer) > 60 10/14/16 06:45 Est GFR (Non-Af Amer) > 60 10/14/16 06:45 Random Glucose 86 mg/dL (70-110) 10/14/16 06:45 Uric Acid 4.9 mg/dL (3.5-8.5) 10/12/16 13:08 Calcium 8.6 mg/dL (8.4-10.5) 10/14/16 06:45 Phosphorus 3.3 mg/dL (2.5-4.5) 10/14/16 06:45 Magnesium 1.7 mg/dL (1.7-2.2) 10/14/16 06:45 Total Bilirubin 1.0 mg/dL (0.2-1.3) 10/14/16 06:45 Direct Bilirubin 0.7 mg/dL (0.0-0.4) H 10/14/16 06:45 AST 43 U/L (15-59) 10/14/16 06:45 ALT 48 U/L (7-56) 10/14/16 06:45 Alkaline Phosphatase 65 U/L (38-133) 10/14/16 06:45 Lactate Dehydrogenase 621 U/L (333-699) 10/10/16 20:00 Total Creatine Kinase 95 U/L (35-230) 10/10/16 20:00 Troponin I < 0.01 ng/mL 10/10/16 20:00 Total Protein 6.2 g/dL (5.8-8.3) 10/14/16 06:45 Albumin 3.0 g/dL (3.0-4.8) 10/14/16 06:45 Globulin 3.2 gm/dL 10/14/16 06:45 Albumin/Globulin Ratio 0.9 (1.1-1.8) L 10/14/16 06:45 Lipase 130 U/L (23-300) 10/10/16 20:00 Prostate Specific Ag 3.2 ng/mL (0.00-2.5) H 10/11/16 11:00 Free PSA 0.5 ng/mL 10/11/16 11:00 % Free PSA 16 Percent (>25) L 10/11/16 11:00 Total PSA 3.1 ng/mL (<=4.0) 10/11/16 11:00 Prostate Cancer Risk 24 Percent 10/11/16 11:00 Urine Color Yellow (YELLOW) 10/10/16 21:00 Urine Appearance Clear (CLEAR) 10/10/16 21:00 Urine pH 6.0 (4.7-8.0) 10/10/16 21:00 Ur Specific [place] 1.020 (1.005-1.035) 10/10/16 21:00 Urine Protein Negative mg/dL (<30 mg/dL) 10/10/16 21:00 Urine Glucose (UA) Negative mg/dL (NEGATIVE) 10/10/16 21:00 Urine Ketones Negative mg/dL (NEGATIVE) 10/10/16 21:00 Urine Blood Negative (NEGATIVE) 10/10/16 21:00 Urine Nitrate Negative (NEGATIVE) 10/10/16 21:00 Urine Bilirubin Moderate (NEGATIVE) H 10/10/16 21:00 Urine Urobilinogen 1.0 E.U./dL (<1 E.U./dL) H 10/10/16 21:00 Ur Leukocyte Esterase Negative Julio/uL (NEGATIVE) 10/10/16 21:00 Hepatitis A IgM Ab Negative (NEGATIVE) 10/10/16 23:20 Hep Bs Antigen Negative (NEGATIVE) 10/10/16 23:20 Hep B Core IgM Ab Negative (NEGATIVE) 10/10/16 23:20 Hepatitis C Antibody Negative (NEGATIVE) 10/10/16 23:20 HIV 1&2 Ag/Ab, 4th Gen Nonreactive (Nonreactive) 10/10/16 23:20 - Hospital Course Hospital Course: This is a 66 yo M with PMH of bladder cancer, colon polyps, and rectal abscess who presented [place] [facility] with complaint of abdominal pain, and was lateral found to have cholelithiasis and elevated LFTs, with imaging also notable for a solitary peripancreatic lymph node. While here, the patient was seen by GI and Surgery. As per Surgery, the patient should obtain an EUS, and can be considered for an elective cholecystectomy after. As per GI, his improvement in symptoms and downtrending LFTs suggest passage of a stone, recommends outpatient EGD and colonoscopy given hx of colonic polyps and last colonoscopy > 10 yrs prior. Patient received 3 days of IV antibiotics while inpatient, and is to be discharged on PO Cipro and Flagyl to complete a 10-day course of abx, as per Primary. He was also given fresh scripts to continue all home medications. He was instructed to follow up with GI (Dr. Williamson) for outpatient EUS as soon as possible, and with Surgery within 1 week to schedule outpatient cholecystectomy, while the patient would like to pursue. He was also instructed to follow up with his PMD within 1 week, and to fill and take all prescriptions as instructed. He was also discovered to have a small fluid filled blister along his left lateral thigh, with some redness (patient described the blister as old and the redness as new), but he remained afebrile and without a leukocytosis, so he was given a script for a 7-day course of keflex and bactroban cream to apply to the affected area BID. Patient expressed understanding and agreement with these instructions, and after all questions were answered to patient's satisfaction, he was discharged to home. Patient reviewed and discussed with attending, Dr. Blancas (covering for Dr. Comer). Discharge Exam - Head Exam Head Exam: ATRAUMATIC, NORMAL INSPECTION, NORMOCEPHALIC - Eye Exam Eye Exam: EOMI, Normal appearance. absent: Conjunctival injection, Scleral icterus Pupil Exam: absent: Irregular, Unequal - ENT Exam ENT Exam: Mucous Membranes Moist - Neck Exam Neck exam: Full Rom - Respiratory Exam Respiratory Exam: Clear to PA & Lateral, NORMAL BREATHING PATTERN, UNREMARKABLE. absent: Accessory Muscle Use, Chest Wall Tenderness, Decreased Breath Sounds - Cardiovascular Exam Cardiovascular Exam: REGULAR RHYTHM, RRR, +S1, +S2. absent: Bradycardia, Tachycardia, Irregular Rhythm, +S4 - GI/Abdominal Exam GI & Abdominal Exam: Normal Bowel Sounds, Unremarkable. absent: Diminished Bowel Sounds, Hyperactive Bowel Sounds, Hypoactive Bowel Sounds, Tenderness - Extremities Exam Extremities exam: full ROM, normal capillary refill, pedal pulses present Additional comments: clear fluid-filled blister along left lateral thigh with ~1cm surrounding erythema, non-tender to palpation - Back Exam Back exam: absent: CVA tenderness (L), CVA tenderness (R) - Neurological Exam Additional comments: Awake and alert, moving all extremities spontaneously, following commands appropriately. - Psychiatric Exam Psychiatric exam: Normal Affect, Normal Mood - Skin Skin Exam: Dry, Intact, Normal Color, Warm Discharge Plan - Discharge Medications Prescriptions: Cephalexin [cephalexin] 500 mg PO TID #21 cap Ciprofloxacin [Cipro] 500 mg PO BID #14 tab metroNIDAZOLE [Flagyl] 500 mg PO TID #21 tab Mupirocin 2% Cream [Bactroban Cream] 30 applic EXT BID PRN #1 tube PRN Reason: skin lesion on leg Pantoprazole [Protonix] 40 mg PO DAILY #30 ect - Follow Up Plan Condition: STABLE Disposition: HOME/ ROUTINE Instructions: Biliary Colic (GEN), Gallstones (DC), Low Fat Diet (DC), Diet for Ulcers and Gastritis (GEN), Furunculosis and Carbunculosis (DC), Upper Endoscopic Gastrointestinal Ultrasonography (DC), Acute Abdominal Pain (DC) Additional Instructions: Please fill and take all medications as prescribed. Please resume all home medications. Please follow up with your primary medical doctor within 1 week. Please follow up with the [facility] (Dr. Williamson) within 1 week to schedule an outpatient EUS. Please follow up with the Surgeon (Dr. Wetzel) in the office regarding elective cholecystectomy. If you experience worsening symptoms or concerning new symptoms, please return to the hospital. Por favor rellene y tome todos los medicamentos segn lo prescrito. Por favor, reanude todos los medicamentos en el hogar. Por favor, siga con olmos mdico en corie semana. Por favor, siga con el gastroenterlogo (Dr. Williamson) dentro de corie semana para programar corie EUS ambulatoria. Por favor, siga con el Cirujano (Dr. Wetzel) en la oficina con respecto a la colecistectoma electiva. Si experimenta sntomas de empeoramiento o nuevos sntomas, por favor regrese al hospital. Referrals: Brayden Bishop MD [Primary Care Provider] - Follow up with primary Nabeel Wetzel MD [Staff Provider] - Myles Williamson MD [Staff Provider] - 7 Days (for EUS and colonoscopy. )
== END 2016-10-14 16:30 | disposition home or self-care (01) | DRG 446 ==
LOC: ED 18:22 → ERH 22:12 → 5RNO 23:54 → OBSVTOIN 10-11 12:23 → 5RNO 10-12 14:57
PROVIDERS: ADMIT Internal Medicine; ATTEND Internal Medicine
DX: K80.20 Calculus of gallbladder without cholecystitis without obstruction (principal); K83.8 Other specified diseases of biliary tract; K76.0 Fatty (change of) liver, not elsewhere classified; H40.9 Unspecified glaucoma; E78.5 Hyperlipidemia, unspecified; M10.9 Gout, unspecified; M47.896 Other spondylosis, lumbar region; R59.1 Generalized enlarged lymph nodes; Z85.51 Personal history of malignant neoplasm of bladder; Z86.010 Personal history of colon polyps

== ENCOUNTER 2016-11-08 07:29 | Day surgery (SDC) | payer MEDICARE, MEDICAID ==
[2016-11-08 08:26] LABS: BASO # 0.05 K/mm3 (0.0-2.0); BASO % 0.6 % (0.0-3.0); EOS # 0.2 (0.0-0.7); EOS % 2.4 % (1.5-5.0); GRAN # 4.57 (1.4-6.5); GRAN % 55.3 % (50.0-68.0); LYMPH # 2.7 (1.2-3.4); MEAN CELL VOLUME 89.6 fl (80.0-105.0); MEAN CORPUSCULAR HEMOGLOBIN 31.5 pg (25.0-35.0); MEAN CORPUSCULAR HGB CONC 35.2 g/dl (31.0-37.0); MEAN PLATELET VOLUME 10.2 fl (7.0-11.0); MONO # 0.7 (0.1-0.6); MONO % 8.7 % (1.0-6.0); RED CELL DISTRIBUTION WIDTH 13.8 % (11.5-14.5); WHITE BLOOD COUNT 8.3 10^3/ul (4.5-11.0)
[2016-11-08 08:46] LABS: INR 1.16 (0.93-1.08); PARTIAL THROMBOPLASTIN TIME 30.3 Seconds (23.7-30.8)
[2016-11-08 08:49] LABS: ALB/GLOB RATIO 1.3 (1.1-1.8); ALKALINE PHOSPHATASE 67 U/L (38-133); ALT/SGPT 41 U/L (7-56); AST/SGOT 46 U/L (15-59); BILIRUBIN,TOTAL 0.7 mg/dL (0.2-1.3); BLOOD UREA NITROGEN 13 mg/dL (7-21); CALCIUM 9.6 mg/dL (8.4-10.5); CARBON DIOXIDE 26 mmol/L (21-33); CHLORIDE 107 mmol/L (98-107); GFR AFRICAN-AMERICAN > 60; GLUCOSE,RANDOM 109 mg/dL (70-110); SODIUM 146 mmol/L (132-148); TOTAL PROTEIN 7.8 g/dL (5.8-8.3)
[2016-11-08] MEDS ORDERED: Propofol 10 mg/ml Inj (20 ML) ONE (09:12)
[2016-11-08] MEDS ORDERED: Sodium Chloride 0.9% 1,000 ML IV SCH (10:15)
[2016-11-08 11:25] VITALS: BP 115/61; RESP 16; TEMP 97.8
[2016-11-08 11:26] VITALS: PULSE 67; O2SAT 97
== END 2016-11-08 11:21 | disposition home or self-care (01) ==
LOC: ENDO 07:29
PROVIDERS: ATTEND Internal Medicine
DX: K80.20 Calculus of gallbladder without cholecystitis without obstruction (principal); K83.8 Other specified diseases of biliary tract; K29.70 Gastritis, unspecified, without bleeding; B96.81 Helicobacter pylori [H. pylori] as the cause of diseases classified elsewhere; Z85.51 Personal history of malignant neoplasm of bladder
CPT/HCPCS: 36415; 43237; 43239; 80053; 85025; 85610; 85730; 88305; 88342; J2001; J2704; J3010; J7040

== ENCOUNTER 2016-12-15 10:16 | Day surgery (SDC) | payer MEDICARE ==
[2016-12-15] MEDS ORDERED: Sodium Chloride 0.9% 1,000 ML IV SCH (12:45)
[2016-12-15] MEDS ORDERED: Lidocaine 1% Inj (20ml) ONE (13:23)
[2016-12-15] MEDS ORDERED: Propofol 10 mg/ml Inj (20 ML) ONE (13:23)
[2016-12-15 14:25] VITALS: BP 118/71; PULSE 59
[2016-12-15 14:37] VITALS: RESP 19; TEMP 97.7; O2SAT 99
== END 2016-12-15 15:30 | disposition home or self-care (01) ==
LOC: ENDO 10:16
PROVIDERS: ATTEND Internal Medicine
DX: Z12.11 Encounter for screening for malignant neoplasm of colon (principal); K63.5 Polyp of colon; K64.8 Other hemorrhoids; Z85.51 Personal history of malignant neoplasm of bladder
CPT/HCPCS: 45380; 88305; J2704; J7040 ×2